=== PATIENT | male | born 1990 | race American Indian/Alaskan Native ===

== ENCOUNTER 2023-09-26 11:14 | Inpatient (IN) | payer SELFPAY ==
[2023-09-26] MEDS ORDERED: NA CHLORIDE 0.9% 2,000 ML ONE (11:53)
[2023-09-26] MEDS ORDERED: ONDANSETRON 4 MG/2 ML VIAL ONE ×2 (12:29→13:46)
[2023-09-26] MEDS ORDERED: HYDROMORPHONE HCL 1 MG/ML INJ ONE ×2 (12:29→13:56)
[2023-09-26 12:32] LABS: Eosinophils % 0.2 % (0-4.4); Nucleated Red Blood Cells % 0.1 % (0-0); Red Cell Distribution Width 14.2 % (12.1-15.2)
[2023-09-26 12:36] LABS: Absolute Lymphocytes (CBC) 2.8 K/uL (0.7-4.9); Absolute Monocytes 1.3 K/uL (0.1-1.3); Absolute Neutrophil 11.5 K/uL (1.8-8.0); Basophils % 0.2 % (0-1.3); Hematocrit 48.1 % (39.6-49.0); Hemoglobin 15.6 g/dL (13.6-17.9); Lymphocytes % 17.8 % (15.3-44.8); MCH 31.6 pg (27.0-35.0); MCHC 32.4 g/dL (32.0-36.0); MCV 97.5 fL (80-100); MPV 10.4 fL (7.6-11.3); Monocytes % 8.3 % (3.3-12.3); Neutrophils % 73.5 % (41.7-73.7); Platelets 298 thou/uL (152-406); RBC Red Blood Cell Count 4.93 M/uL (4.33-5.43)
--- NOTE | 2023-09-26 13:21 | RAD REPORT ---
EXAM DESCRIPTION: Michelle Single View09/26/2023 12:29 pm CLINICAL HISTORY: [place] breath COMPARISON: none FINDINGS: Small nodular opacity right lung base. Left lung appears clear Lungs are moderately hyperaerated IMPRESSION: Hyperaerated lungs Small nodular opacity right base a represent a nipple shadow or pulmonary nodule. Follow-up chest irene m including obliques with a right nipple marker in 3 months recommended for re-evaluation
[2023-09-26 13:30] LABS: Blood Morphology Comment NOT SEEN (NOT SEEN); Platelet Estimate ADEQ; White Blood Cell Scan OK (OK)
[2023-09-26 13:36] LABS: ALT/SGPT 27 U/L (16-61); AST/SGOT 14 U/L (15-37); Albumin 3.4 g/dL (3.4-5.0); Albumin/Globulin Ratio 0.8 (1.1-1.8); Alkaline Phosphatase 216 U/L (45-117); Anion Gap 29.4 mEq/L (5.0-15.0); BUN Blood Urea Nitrogen 18 mg/dL (7-18); Bilirubin Total 0.4 mg/dL (0.2-1.0); Globulin 4.3 g/dL (2.3-3.5); Glomerular Filtration Rate 92 ml/min (=/>90); Glucose Level 546 mg/dL (74-106); Potassium 3.4 mEq/L (3.5-5.1); Protein, Total 7.7 g/dL (6.4-8.2); Sodium Level 133 mEq/L (136-145)
[2023-09-26 13:43] LABS: Bicarbonate < 8 mEq/L (21-32)
[2023-09-26] MEDS ORDERED: NA CHLORIDE 0.9% 100 ML ONE ×2 (13:46→21:00)
[2023-09-26] MEDS ORDERED: INSULIN -REGULAR HUMAN 100 UNIT in NA CHLORIDE 0.9% 100 ML IV SCH ×2 (14:00→14:30)
--- NOTE | 2023-09-26 14:10 | ER ---
Nurse's Notes [facility] Name: Ebenezer Joshi Age: 33 yrs Sex: Male : 1990 Arrival Date: 09/26/2023 Time: 11:14 Bed 2 Private MD: Diagnosis: Diabetic ketoacidosis, lactic acidosis, dehydration, hyperglycemia Presentation: 09/25 11:24 Chief complaint: Patient states: "I've been SOB, N/V, and upper stomach pain since this mb9 morning.". Coronavirus screen: At this time, the client does not indicate any symptoms associated with coronavirus-19. Coronavirus screen: Vaccine status: Patient reports receiving the 2nd dose of the covid vaccine. Ebola Screen: No symptoms or risks identified at this time. Initial Sepsis Screen: Does the patient meet any 2 criteria? HR > 90 bpm. Does the patient have a suspected source of infection? No. Patient's initial sepsis screen is negative. Risk Assessment: Do you want to hurt yourself or someone else? Patient reports no desire to harm self or others. Onset of symptoms was September 26, 2023. 11:24 Method Of Arrival: Ambulatory mb9 11:24 Acuity: RANJEET 2 mb9 Triage Assessment: 11:26 General: Appears uncomfortable, Behavior is anxious. Pain: Complains of pain in mb9 abdomen. EENT: No signs and/or symptoms were reported regarding the EENT system. Cardiovascular: Patient's skin is warm and dry. Respiratory: Reports shortness of breath Airway is patent Respiratory effort is even, unlabored, Respiratory pattern is regular, symmetrical, Breath sounds are clear bilaterally. Respiratory: Onset: The symptoms/episode began/occurred suddenly, the patient has mild shortness of breath. GI: Abd is soft Abdomen is tender to palpation in right upper quadrant and left upper quadrant Reports upper abdominal pain, nausea, vomiting. Musculoskeletal: Range of motion: intact in all extremities. Historical: - Allergies: 11:23 No Known Allergies; mb9 - Home Meds: 11:23 Metformin Oral [Active]; mb9 - PMHx: 11:23 Diabetes mellitus; Hypertensive disorder; mb9 - PSHx: 11:23 None; mb9 - Immunization history:: Adult Immunizations up to date. - Social history:: Smoking status: Patient denies any tobacco usage or history of. Screenin:17 [facility] ED Fall Risk Assessment (Adult) History of falling in the last 3 months, rs5 including since admission No falls in past 3 months (0 pts) Confusion or Disorientation No (0 pts) Intoxicated or Sedated No (0 pts) Impaired Gait No (0 pts) Mobility Assist Device Used No (0 pt) Altered Elimination No (0 pt) Score/Fall Risk Level 0 - 2 = Low Risk Oriented to surroundings, Maintained a safe environment. 11:17 Abuse screen: Denies threats or abuse. Nutritional screening: No deficits noted. rs5 Tuberculosis screening: No symptoms or risk factors identified. Assessment: 11:20 General: Appears distressed, uncomfortable, Behavior is cooperative. Pain: Complains of rs5 pain in abdomen Pain currently is 8 out of 10 on a pain scale. Quality of pain is described as aching, Is continuous. Neuro: Level of Consciousness is awake, alert, obeys commands, Oriented to person, place, time, situation. Cardiovascular: Patient's skin is warm and dry. Rhythm is regular. Respiratory: Airway is patent Respiratory effort is even, unlabored, Respiratory pattern is regular, symmetrical. GI: Abdomen is flat, non-distended, Abd is soft and non tender X 4 quads. Reports nausea, Pain is 8 out of 10 on a pain scale. : No signs and/or symptoms were reported regarding the genitourinary system. EENT: No signs and/or symptoms were reported regarding the EENT system. Derm: Skin is intact, Skin is dry, Skin is normal. Musculoskeletal: Circulation, motion, and sensation intact. Range of motion: intact in all extremities. 12:29 Reassessment: Patient and/or family updated on plan of care and expected duration. Pain rs5 level reassessed. Patient is alert, oriented x 3, equal unlabored respirations, skin warm/dry/pink. Patient states feeling better. Patient states symptoms have improved. 13:37 Reassessment: Patient and/or family updated on plan of care and expected duration. Pain rs5 level reassessed. Patient is alert, oriented x 3, equal unlabored respirations, skin warm/dry/pink. Pain: Complains of pain in abdomen Pain currently is 7 out of 10 on a pain scale. Quality of pain is described as aching, Is continuous. 13:37 Reassessment: Provider notified pt is experiencing pain. rs5 20:17 General: person to contact nephew: Tod Honeycutt [phone]. lg3 Vital Signs: 11:24 BP 181 / 94; Pulse 108; Resp 20; Temp 97.7; Pulse Ox 100% on R/A; Weight 52.16 kg; mb9 Height 5 ft. 10 in. ; Pain 10/10; 13:37 BP 156 / 99; Pulse 90; Resp 19; Pulse Ox 99% on R/A; rs5 13:52 BP 150 / 100; rs5 14:48 BP 141 / 95; Pulse 96; Resp 16; Pulse Ox 100% on R/A; ld1 11:24 Body Mass Index 16.50 (52.16 kg, 177.8 cm) mb9 11:24 Pain Scale: Adult mb9 ED Course: 11:14 Patient arrived in ED. im 11:20 Patient has correct armband on for positive identification. Bed in low position. Call rs5 light in reach. Side rails up X2. 11:20 No provider procedures requiring assistance completed. rs5 11:21 Henry Cervantes MD is Attending Physician. sp3 11:24 Arm band placed on. mb9 11:26 Triage completed. mb9 11:30 Inserted saline lock: 24 gauge in right forearm, using aseptic technique. rs5 11:54 Nick Ceron, RN is Primary Nurse. rs5 12:31 Chest Single View XRAY In Process Unspecified. EDMS 14:09 Garry Marroquin MD is Hospitalizing Provider. sp3 14:19 CT Abd/Pelvis - Without Contrast In Process Unspecified. EDMS 15:11 Notified ED physician of a critical lab result(s). glucose 617. mb9 15:46 Glucose Sent. rs5 16:08 Patient admitted, IV remains in place. ld1 16:09 Provided Education on: need for admit. ld1 19:52 Glucose Sent. lg3 19:52 Glucose Sent. lg3 19:52 Glucose Sent. lg3 19:52 Glucose Sent. lg3 19:52 Glucose Sent. lg3 09/26 00:32 Attending Physician role handed off by Henry Cervantes MD sp4 00:32 Bright Kimball MD is Attending Physician. sp4 01:09 Assisted provider with central line placement. Set up central line tray. Triple lumen lg3 line placed in left internal jugular. Line placed by Bright iKmball MD Placement verified by CXR, blood return, Patient tolerated well. 07:06 Primary Nurse role handed off by Nick Ceron RN eb Administered Medications: 09/25 12:30 Drug: NS 0.9% IV (30 ml/kg) 30 ml/kg IV at bolus once; Sepsis Protocol Route: IV; Rate: rs5 bolus; Site: right forearm; 12:30 Drug: HYDROmorphone IVP 1 mg IVP once Route: IVP; Site: right forearm; rs5 12:30 Drug: Ondansetron IVP 4 mg IVP once; over 2 minutes Route: IVP; Site: right forearm; rs5 13:58 Drug: Ondansetron IVP 4 mg IVP once; over 2 minutes Route: IVP; Site: right antecubital;rs5 13:58 Drug: HYDROmorphone IVP 1 mg IVP once Route: IVP; Site: right antecubital; rs5 14:04 Drug: Ondansetron IVP 4 mg IVP once; over 2 minutes Route: IVP; Site: right forearm; rs5 15:10 Drug: Insulin Drip - (Insulin Regular Human IVP 100 units, NS 0.9% IV 100 ml) IV at ld1 calculated rate continuous; Standard concentration 1unit/ml; Dose for DKA is 0.1 units/kg/hr {Co-Signature: aa5 (Xuan Jones RN).} Route: IV; Rate: calculated rate; Site: right wrist; Medication: 13:39 VIS not applicable for this client. rs5 Outcome: 14:09 Decision to Hospitalize by Provider. sp3 16:08 Admitted to ER Hold. Please see [facility] for further documentation. ld1 16:08 Condition: stable 16:08 Instructed on the need for admit, 09/26 13:09 Patient left the ED. mb9 Signatures: Dispatcher [employer] EDMS Zoie Barakat Lacie, RN RN lg3 Annita Lewis RN RN ld1 Henry Cervantes MD MD sp3 Christa Chavarria RN RN mb9 Nick Ceron RN RN rs5 Bright Kimball MD MD sp4 Gris Momin Audri RN aa5 Corrections: (The following items were deleted from the chart) 09/25 11:37 11:24 Acuity: RANJEET 3 mb9 mb9
--- NOTE | 2023-09-26 14:10 | EDPHYS ---
Physician Documentation [facility] Name: Ebenezer Joshi Age: 33 yrs Sex: Male : 1990 Arrival Date: 09/26/2023 Time: 11:14 Bed 2 Private MD: ED Physician Bright Kimball HPI: 09/25 12:21 This 33 yrs old Male presents to ER via Ambulatory with complaints of Breathing sp3 Difficulty, Vomiting. 12:21 33-year-old male with history of diabetes, hypertension presents to the ED with chief sp3 complaint diarrhea, abdominal cramping and heavy breathing. Symptoms started 3 days ago. He denies any blood or mucus. He feels "dehydrated". Review of systems negative for headache, fever, URI symptoms, chest pain, back pain, vomiting, rash, syncope, near syncope, or any other signs or symptoms on ROS at this time. He states he is not currently on any medications for his diabetes.. Historical: - Allergies: 11:23 No Known Allergies; mb9 - Home Meds: 11:23 Metformin Oral [Active]; mb9 - PMHx: 11:23 Diabetes mellitus; Hypertensive disorder; mb9 - PSHx: 11:23 None; mb9 - Immunization history:: Adult Immunizations up to date. - Social history:: Smoking status: Patient denies any tobacco usage or history of. ROS: 12:22 Constitutional: Negative for fever, chills, and weight loss, Eyes: Negative for injury, sp3 pain, redness, and discharge, ENT: Negative for injury, pain, and discharge, Neck: Negative for injury, pain, and swelling, Cardiovascular: Negative for chest pain, palpitations, and edema, Back: Negative for injury and pain, MS/Extremity: Negative for injury and deformity, Skin: Negative for injury, rash, and discoloration, Neuro: Negative for headache, weakness, numbness, tingling, and seizure, Psych: Negative for depression, anxiety, suicide ideation, homicidal ideation, and hallucinations, Allergy/Immunology: Negative for hives, rash, and allergies, 12:22 All other systems are negative, Exam: 12:23 Constitutional: This is a well developed, well nourished patient who is awake, alert, sp3 and in no acute distress. Head/Face: Normocephalic, atraumatic. Eyes: Pupils equal round and reactive to light, extra-ocular motions intact. Lids and lashes normal. Conjunctiva and sclera are non-icteric and not injected. Cornea within normal limits. Periorbital areas with no swelling, redness, or edema. ENT: Nares patent. No nasal discharge, no septal abnormalities noted. External auditory canals are clear. Oropharynx with no redness, swelling, or masses, exudates, or evidence of obstruction, uvula midline. Mucous membranes moist. Neck: Trachea midline, no thyromegaly or masses palpated, and no cervical lymphadenopathy. Supple, full range of motion without nuchal rigidity, or vertebral point tenderness. No Meningismus. Chest/axilla: Normal chest wall appearance and motion. Nontender with no deformity. No lesions are appreciated. Cardiovascular: Regular rate and rhythm with a normal S1 and S2. No gallops, murmurs, or rubs. Normal PMI, no JVD. No pulse deficits. Back: No spinal tenderness. No costovertebral tenderness. Full range of motion. Skin: Warm, dry with normal turgor. Normal color with no rashes, no lesions, and no evidence of cellulitis. 12:23 Abdomen/GI: Patient with Kussmaul breathing and abdominal cramping. Clinically he is dehydrated with dry mucous membranes., 13:22 ECG was reviewed by the Attending Physician. EKG demonstrates sinus tachycardia at 100 sp3 bpm with normal axis, normal intervals, normal QRS nonspecific ST's ST changes due to motion artifact without any evidence of acute ischemia. Vital Signs: 11:24 BP 181 / 94; Pulse 108; Resp 20; Temp 97.7; Pulse Ox 100% on R/A; Weight 52.16 kg; mb9 Height 5 ft. 10 in. ; Pain 10/10; 13:37 BP 156 / 99; Pulse 90; Resp 19; Pulse Ox 99% on R/A; rs5 13:52 BP 150 / 100; rs5 14:48 BP 141 / 95; Pulse 96; Resp 16; Pulse Ox 100% on R/A; ld1 11:24 Body Mass Index 16.50 (52.16 kg, 177.8 cm) mb9 11:24 Pain Scale: Adult mb9 Procedures: 09/26 01:13 Central Line: the site was prepped with in sterile fashion, Chlorhexidine, a triple sp4 lumen catheter was inserted, in the left internal jugular vein, in 1 attempts. placement was verified, by CXR, by blood return, Ultrasound-guided central line, the site was dressed with 4X4s, Tegaderm, using sterile technique, Sutured with silk sutures, the patient tolerated the procedure, well, Patient has pulled out multiple IVs and decision was made to secure IV access over the central line. Left internal jugular central venous line was placed with ultrasound guidance for better IV access in the resuscitation for this patient who is in DKA. Procedure Is considered emergent. MDM: 09/25 11:21 Patient medically screened. sp3 12:23 Data reviewed: vital signs, nurses notes, lab test result(s), radiologic studies. ED sp3 course: 33-year-old male with diabetes and hypertension now with abdominal cramping and Kussmaul breathing with probable DKA. Other considerations include hyperglycemia with mild dehydration versus other GI pathology including gastroenteritis. Workup will include laboratory values and fluid resuscitation and any antibiotics as indicated. Pain and nausea control as well. Disposition probable admission with any other interventions as indicated.. 14:08 ED course: Patient will be admitted for DKA with significant anion gap noted. Lactate sp3 is also 2.9. I did CT scan of the abdomen pelvis due to continued abdominal pain. Vital signs remain normal. Further per inpatient team patient will be admitted to the ICU.. 09/25 11:46 Order name: Blood Culture Adult (2) sp3 09/25 11:46 Order name: CBC with Diff; Complete Time: 13:35 sp3 09/25 11:46 Order name: CMP; Complete Time: 13:59 sp3 09/25 11:46 Order name: Lactate w/ 2H reflex if indic.; Complete Time: 13:59 sp3 09/25 11:46 Order name: Urinalysis w/ reflexes; Complete Time: 00:32 sp3 09/25 11:46 Order name: ABG: VBG; Complete Time: 00:32 sp3 09/25 11:46 Order name: UDS; Complete Time: 00:32 sp3 09/25 11:48 Order name: Glucose, Ancillary Testing; Complete Time: 13:19 EDMS 09/25 12:47 Order name: CBC Smear Scan; Complete Time: 13:35 EDMS 09/25 14:18 Order name: Glucose; Complete Time: 00:32 ld1 09/25 14:24 Order name: Basic Metabolic Panel EDMS 09/25 14:24 Order name: Basic Metabolic Panel EDMS 09/25 14:24 Order name: Basic Metabolic Panel; Complete Time: 00:32 EDMS 09/25 14:24 Order name: Basic Metabolic Panel; Complete Time: 00:32 EDMS 09/25 14:24 Order name: CBC with Automated Diff EDMS 09/25 14:24 Order name: CBC with Automated Diff EDMS 09/25 14:24 Order name: CBC with Automated Diff EDMS 09/25 14:24 Order name: CBC with Automated Diff EDMS 09/25 14:24 Order name: Magnesium EDMS 09/25 14:24 Order name: Magnesium EDMS 09/25 14:24 Order name: Magnesium EDMS 09/25 14:24 Order name: Magnesium EDMS 09/25 14:24 Order name: Phosphorus EDMS 09/25 14:24 Order name: Phosphorus EDMS 09/25 14:24 Order name: Phosphorus EDMS 09/25 14:24 Order name: Phosphorus EDMS 09/25 14:31 Order name: Glucose, Ancillary Testing; Complete Time: 14:47 EDMS 09/25 15:35 Order name: Glucose ld1 09/25 16:13 Order name: Glucose Level; Complete Time: 00:32 EDMS 09/25 16:14 Order name: Glucose ld1 09/25 17:16 Order name: Glucose Level; Complete Time: 00:32 EDMS 09/25 17:50 Order name: Glucose rs5 09/25 17:55 Order name: Glucose ld1 09/25 18:37 Order name: Glucose Level; Complete Time: 00:32 EDMS 09/25 18:48 Order name: Lactate Sepsis 2 HR Follow-up; Complete Time: 00:32 EDMS 09/25 18:49 Order name: Glucose rs5 09/25 19:17 Order name: Glucose lg3 09/25 19:31 Order name: Glucose Level; Complete Time: 00:32 EDMS 09/25 20:44 Order name: Glucose, Ancillary Testing; Complete Time: 00:32 EDMS 09/25 21:58 Order name: Glucose, Ancillary Testing; Complete Time: 00:32 EDMS 09/25 22:48 Order name: Glucose, Ancillary Testing; Complete Time: 00:32 EDMS 09/25 23:51 Order name: Glucose, Ancillary Testing; Complete Time: 00:32 EDMS 09/26 00:52 Order name: Glucose, Ancillary Testing EDMS 09/26 01:47 Order name: Glucose, Ancillary Testing EDMS 09/26 02:13 Order name: Glucose, Ancillary Testing EDMS 09/26 02:46 Order name: Glucose, Ancillary Testing EDMS 09/26 03:31 Order name: Gram Stain--Anaerobic Bottle EDMS 09/26 03:45 Order name: Glucose, Ancillary Testing EDMS 09/26 04:36 Order name: Glucose, Ancillary Testing EDMS 09/26 04:47 Order name: Basic Metabolic Panel [facility] 09/26 05:26 Order name: Glucose, Ancillary Testing EDMS 09/26 06:15 Order name: Basic Metabolic Panel EDMS 09/26 06:15 Order name: Phosphorus EDMS 09/26 06:15 Order name: Magnesium EDMS 09/26 06:44 Order name: Blood Culture EDMS 09/26 06:48 Order name: Glucose, Ancillary Testing EDMS 09/26 07:42 Order name: Glucose, Ancillary Testing EDMS 09/26 08:42 Order name: Glucose, Ancillary Testing EDMS 09/26 09:53 Order name: Glucose, Ancillary Testing EDMS 09/26 10:45 Order name: Glucose, Ancillary Testing EDMS 09/26 11:43 Order name: Glucose, Ancillary Testing EDMS 09/26 12:39 Order name: Basic Metabolic Panel EDMS 09/26 12:39 Order name: Magnesium EDMS 09/25 11:46 Order name: Chest Single View XRAY; Complete Time: 13:23 sp3 09/25 13:56 Order name: CT Abd/Pelvis - Without Contrast; Complete Time: 14:47 sp3 09/26 01:15 Order name: Chest Single View XRAY sp4 09/26 10:26 Order name: RAD EDMS 09/25 11:46 Order name: EKG; Complete Time: 11:47 sp3 09/25 11:46 Order name: Accucheck; Complete Time: 13:52 sp3 09/25 11:46 Order name: Cardiac monitoring; Complete Time: 12:36 sp3 09/25 11:46 Order name: EKG - Nurse/Tech; Complete Time: 13:24 sp3 09/25 11:46 Order name: IV Saline Lock - Large Bore; Complete Time: 12:36 sp3 09/25 11:46 Order name: Labs collected and sent; Complete Time: 12:36 sp3 09/25 11:46 Order name: O2 Sat Monitoring; Complete Time: 12:36 sp3 09/25 11:46 Order name: Vital Signs; Complete Time: 12:36 sp3 09/25 12:39 Order name: Labs - recollect needed: green and nolen top; Complete Time: 13:52 ds4 09/26 00:33 Order name: Central Line Kit; Complete Time: 01:08 sp4 Administered Medications: 12:30 Drug: NS 0.9% IV (30 ml/kg) 30 ml/kg IV at bolus once; Sepsis Protocol Route: IV; Rate: rs5 bolus; Site: right forearm; 12:30 Drug: HYDROmorphone IVP 1 mg IVP once Route: IVP; Site: right forearm; rs5 12:30 Drug: Ondansetron IVP 4 mg IVP once; over 2 minutes Route: IVP; Site: right forearm; rs5 13:58 Drug: Ondansetron IVP 4 mg IVP once; over 2 minutes Route: IVP; Site: right antecubital;rs5 13:58 Drug: HYDROmorphone IVP 1 mg IVP once Route: IVP; Site: right antecubital; rs5 14:04 Drug: Ondansetron IVP 4 mg IVP once; over 2 minutes Route: IVP; Site: right forearm; rs5 15:10 Drug: Insulin Drip - (Insulin Regular Human IVP 100 units, NS 0.9% IV 100 ml) IV at ld1 calculated rate continuous; Standard concentration 1unit/ml; Dose for DKA is 0.1 units/kg/hr {Co-Signature: aa5 (Xuan Jones RN).} Route: IV; Rate: calculated rate; Site: right wrist; Disposition Summary: 09/26/23 14:09 Hospitalization Ordered Notes: Hospitalization Status: Inpatient Admission sp3 Provider: Garry Marroquin Condition: Stable sp3 Problem: an acute exacerbation sp3 Symptoms: have worsened sp3 Bed/Room Type: Standard 3 Location: Telemetry/MedSurg (Inpatient)(09/27/23 12:20) eb Room Assignment: 210(09/27/23 12:20) eb Diagnosis - Diabetic ketoacidosis, lactic acidosis, dehydration, hyperglycemia sp3 Forms: - Medication Reconciliation Form sp3 - SBAR form sp3 - Leadership Thank You Letter sp3 Signatures: Dispatcher [employer] EDMS Boni Mark Anthony ds4 Zoie Barakat Lauren RN RN ld1 Henry Cervantes MD MD sp3 Ree Rocha RN RN kb3 Christa Chavarria RN RN mb9 Nick Ceron RN RN rs5 Bright Kimball MD MD sp4 Xuan Jones RN aa5 Corrections: (The following items were deleted from the chart) 15:18 14:09 Intensive Care Unit sp3 kb3 15:18 14:09 sp3 kb3 09/26 12:20 09/25 15:18 [facility] ER HOLD kb3 eb 09/26 12:20 09/25 15:18 ERHOLD- kb3 eb
--- NOTE | 2023-09-26 14:17 | P.HP ---
Certification for Inpatient Patient admitted to: Inpatient With expected LOS: <2 Midnights <SiminYamilka - Last Filed: 09/26/23 14:23> Patient History Date of Service: 09/26/23 Reason for admission: DKA History of Present Illness: 33-year-old male with a past medical history of [id number]-[id number] diabetes, presents to the emergency room with nausea vomiting. He reports associated unable to tolerate p.o. intake, abdominal cramping, diarrhea. He reports symptoms started 3 days ago, is getting progressively worse. He reports feeling dehydrated. He denies chest pain, shortness of breath, vomiting, syncope, plan to admit for DKA, dehydration nausea vomiting, to ICU. VS 181 / 94; Pulse 108; Resp 20; Temp 97.7; Pulse Ox 100% on R/A; Weight 52.16 kg; Height 5 ft. 10 in. ; Pain 10/10; treated with Dilaudid, 1 mg, Zofran, in the emergency room for pain and vomiting. Chest x-ray IMPRESSION: Hyperaerated lungs Small nodular opacity right base a represent a nipple shadow or pulmonary nodule. Follow-up chest film including obliques with a right nipple marker in 3 months recommended for re- evaluation. CT of the abdomen pelvis pending report <Yamilka Duval - Last Filed: 09/26/23 14:23> Date of Service: 09/26/23 <Garry Marroquin - Last Filed: 09/26/23 15:54> Allergies No Known Allergies Allergy (Unverified 09/26/23 13:57) Review of Systems per HPI <Yamilka Duval - Last Filed: 09/26/23 14:23> Physical Examination - Physical Exam General: Alert, In no apparent distress, Oriented x3 HEENT: Atraumatic, Normocephalic Neck: Supple, 2+ carotid pulse no bruit Respiratory: Clear to auscultation bilaterally, Normal air movement Cardiovascular: No edema, Normal pulses Capillary refill: <2 Seconds Gastrointestinal: Normal bowel sounds, Other (Nausea vomiting diarrhea) Musculoskeletal: No clubbing, No swelling Integumentary: No rashes, No breakdown Neurological: Normal speech, Normal strength at 5/5 x4 extr - Studies Laboratory Data (last 24 hrs) 09/26/23 09/26/23 13:10 12:23 WBC 15.70 H Hgb 15.6 Hct 48.1 Plt Count 298 Sodium 133 L Potassium 3.4 L BUN 18 Creatinine 1.08 Glucose 546 H* Total Bilirubin 0.4 AST 14 L ALT 27 Alkaline Phosphatase 216 H <Yamilka Duval - Last Filed: 09/26/23 14:23> - Studies Laboratory Data (last 24 hrs) 09/26/23 09/26/23 13:10 12:23 WBC 15.70 H Hgb 15.6 Hct 48.1 Plt Count 298 Sodium 133 L Potassium 3.4 L BUN 18 Creatinine 1.08 Glucose 546 H* Total Bilirubin 0.4 AST 14 L ALT 27 Alkaline Phosphatase 216 H <LopezIndukarey Griffith - Last Filed: 09/26/23 15:54> Assessment and Plan - Plan Assessment plan Admit to ICU on DKA IV fluids, insulin drip, every hour blood sugars, Insulin drip per DKA protocol Every 4 hours BMP and mag Blood glucose greater than 500 Lactic acidosis IV fluids, IV Levaquin, Cultures, Trend lactic Lactic 2.9, repeat repeat lactic Urine, blood culture Dehydration, Abdominal pain, Nausea vomiting diarrhea As needed analgesics, antiemetics, IV fluids Trend lactic, Hypokalemia Trend electrolytes replace as needed every 4 hours BMP Full code DVT Lovenox Diet n.p.o. Disposition Home Discharge Plan: Home - Advance Directives Does patient have a Living Will: No Does patient have a Durable POA for Healthcare: No - Code Status/Comfort Care Code Status: Full Code Critical Care: Yes Time Spent Managing Pts Care (In Minutes): 65 <Yamilka Duval - Last Filed: 09/26/23 14:23> - Plan Pt seen and examined. I agree with the note by the [employer] FORMER. Pt is a 33yo male with past medical history of DM who presents with nausea and vomiting. 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 This history is from chart review. Pt told the ER physician that he started having nausea, vomiting, poor oral intake, diarrhea and abd pain 3 days ago. It progressively worsened and pt came to the ER for evaluation. On admission, lab studies show wbc 15.7, glucose 671 and hgb 15.6. CXR shows hyperaerated lungs Small nodular opacity right base a represent a nipple shadow or pulmonary nodule. At bedside, pt is in mild distress A/P: DKA: Will continue DKA protocol. glucose is 671. Pt is having kussmaul breathing. Lactic acidosis: Lactate is 2.9. Will continue IVF and trend lactate. Leukocytosis: WBC is 15.7. Due to DKA. Will monitor. Code: full <Garry Marroquin - Last Filed: 09/26/23 15:54>
[2023-09-26] MEDS ORDERED: ONDANSETRON 4 MG/2 ML VIAL IV PRN (14:19)
--- NOTE | 2023-09-26 14:42 | RAD REPORT ---
EXAM DESCRIPTION: CT - Abdomen Pelvis Wo Contrast - 09/26/2023 2:17 pm CLINICAL HISTORY: Abdominal pain COMPARISON: None TECHNIQUE: Computed axial tomography of the abdomen and pelvis was obtained. IV and oral contrast we re not requested. All CT scans are performed using dose optimization technique as appropriate and may include automated exposure control or mA/KV adjustment according to patient size. FINDINGS: A few images are degraded by motion artifact The The evaluation of solid organs, vessels and bowel is limited secondary to the lack of contrast a dministration. The stomach is moderately to markedly distended The liver, spleen, pancreas, adrenals and kidneys appear grossly normal. There is no evidence of diverticulitis. IMPRESSION: Moderate to marked gastric distention
[2023-09-26] MEDS ORDERED: LORazepam 2 MG/ML VIAL ONE ×2 (14:56→21:33)
[2023-09-26] MEDS: KCL 20 MEQ/100 mL IVPB 20 MEQ/100 ML BAG IV SCH (15:00)
[2023-09-26] MEDS: NA CHLORIDE 0.9% 1,000 ML IV SCH (15:00)
[2023-09-26] MEDS: LORazepam 2 MG/ML VIAL IV PRN (15:00)
[2023-09-26] MEDS: Levofloxacin 750mg IV 750 MG/150 ML BAG IV SCH (15:00)
[2023-09-26] MEDS: D5 0.45 NS 1,000 ML IV SCH (15:00)
[2023-09-26] MEDS ORDERED: NA CHLORIDE 0.9% 1,000 ML ONE ×2 (15:33→17:54)
[2023-09-26] MEDS ORDERED: KCL 20 MEQ/100 mL IVPB 100 ML IV ONE ×2 (15:33→17:56)
[2023-09-26] MEDS ORDERED: Levofloxacin 750mg IV 750 MG/150 ML BAG IV ONE (15:33)
[2023-09-26] MEDS ORDERED: D5 0.45 NS 1,000 ML IV ONE (15:36)
[2023-09-26] MEDS: INSULIN -REGULAR HUMAN 100 UNIT in NA CHLORIDE 0.9% 100 ML IV SCH (15:39)
[2023-09-26] MEDS ORDERED: INSULIN REGULAR (HUMAN) 100 UNIT/ML ONE ×3 (17:56→20:59)
[2023-09-26 18:49] LABS: Anion Gap 28.7 mEq/L (5.0-15.0); BUN Blood Urea Nitrogen 22 mg/dL (7-18); Glomerular Filtration Rate 90 ml/min (=/>90); Potassium 3.7 mEq/L (3.5-5.1); Sodium Level 134 mEq/L (136-145)
[2023-09-26 18:50] LABS: Glucose Level 608 mg/dL (74-106)
[2023-09-26 18:51] LABS: Bicarbonate < 8 mEq/L (21-32)
[2023-09-26 21:30] LABS: Arterial Blood Carboxyhemoglob 0.8 % (0-1.5); Blood Gas Oxyhemoglobin 94.8 % (94-97); Blood Gas THB 13.7 g/dl (12-18); Blood O2 Saturation 97.9 % (92-98.5)
[2023-09-26 22:51] LABS: Specific Gravity 1.017 (1.005-1.030); Sqamous Epithelial <5 /HPF (None Seen); Urine Bacteria <20 /HPF (<20); Urine Bilirubin NEGATIVE (Negative); Urine Blood 1+ (Negative); Urine Clarity Turbid (Clear); Urine Color Light-Yellow (Yellow); Urine Crystals Unidentified Few /HPF (None Seen); Urine Culture Reflex Order NOT NEEDED; Urine Glucose 4+ (Over) (Negative); Urine Ketones 3+ (Negative); Urine Microscopic Reflex YN ORDER UMIC; Urine Mucus Slight /HPF (None Seen); Urine Nitrite NEGATIVE (Negative); Urine Protein 1+ (Negative); Urine RBC <5 /HPF (None Seen); Urine Urobilinogen Normal (Normal); Urine WBC <5 /HPF (<5); Urine Yeast (Budding) Few /HPF (None Seen)
[2023-09-26 22:53] LABS: Anion Gap 22.5 mEq/L (5.0-15.0); BUN Blood Urea Nitrogen 25 mg/dL (7-18); Bicarbonate < 8 mEq/L (21-32); Glomerular Filtration Rate 84 ml/min (=/>90); Glucose Level 271 mg/dL (74-106); Potassium 3.5 mEq/L (3.5-5.1); Sodium Level 139 mEq/L (136-145)
[2023-09-26 22:56] LABS: Barbiturates NEGATIVE (NEGATIVE); Benzodiazepines NEGATIVE (NEGATIVE); Cocaine POSITIVE (NEGATIVE); METHAMPHETAM NEGATIVE (NEGATIVE); Methadone NEGATIVE (NEGATIVE); Opiates NEGATIVE (NEGATIVE); Phencyclidine NEGATIVE (NEGATIVE); THC Cannibis NEGATIVE (NEGATIVE)
[2023-09-27] MEDS ORDERED: D5 0.45 NS 1,000 ML IV ONE ×2 (00:46→07:37)
[2023-09-27] MEDS ORDERED: LIDOCAINE 1% 20 ML MDV ONE (00:59)
[2023-09-27 05:56] LABS: Absolute Lymphocytes (CBC) 0.3 K/uL (0.7-4.9); Absolute Neutrophil 8.9 K/uL (1.8-8.0); Basophils % 0.3 % (0-1.3); Eosinophils % 0.1 % (0-4.4); Hematocrit 34.4 % (39.6-49.0); Hemoglobin 12.1 g/dL (13.6-17.9); Lymphocytes % 3.1 % (15.3-44.8); MCH 31.7 pg (27.0-35.0); MCHC 35.1 g/dL (32.0-36.0); MCV 90.3 fL (80-100); MPV 9.1 fL (7.6-11.3); Neutrophils % 86.5 % (41.7-73.7); Platelets 205 thou/uL (152-406); RBC Red Blood Cell Count 3.81 M/uL (4.33-5.43); Red Cell Distribution Width 13.4 % (12.1-15.2)
[2023-09-27 06:14] LABS: Anion Gap 12.3 mEq/L (5.0-15.0); Magnesium 1.4 mg/dL (1.6-2.4); Potassium 3.3 mEq/L (3.5-5.1)
[2023-09-27 06:15] LABS: Phosphorus 0.7 mg/dL (2.5-4.9)
[2023-09-27] MEDS ORDERED: KCL 20 MEQ/100 mL IVPB 100 ML IV ONE (06:51)
[2023-09-27] MEDS ORDERED: Magnesium Sulfate 2gm IVPB 2 G/50 ML BAG IV ONE (06:51)
[2023-09-27] MEDS ORDERED: NA CHLORIDE 0.9% 100 ML ONE (06:51)
[2023-09-27] MEDS: POTASSIUM PHOS 30 MM in NA CHLORIDE 0.9% 500 ML IV ONE ×2 (07:00→08:00)
[2023-09-27] MEDS: Magnesium Sulfate 2gm IVPB 2 G/50 ML BAG IV ONE (07:07)
[2023-09-27] MEDS: KCL 20 MEQ/100 mL IVPB 20 MEQ/100 ML BAG IV SCH ×2 (07:08→22:12)
[2023-09-27] MEDS: INSULIN REGULAR (HUMAN) 100 UNIT/ML ONE (07:09)
--- NOTE | 2023-09-27 07:11 | P.PN ---
Subjective Date of Service: 09/27/23 Chief Complaint: DKA Admitted to ICU on insulin drip, Mild anxiety, Ativan as needed give, blood sugars improved UDS positive for cocaine, alert and oriented this morning answering questions appropriately - Physical Exam General: Alert, In no apparent distress, Oriented x3 HEENT: Atraumatic, Normocephalic Neck: Supple, 2+ carotid pulse no bruit Respiratory: Clear to auscultation bilaterally, Normal air movement Cardiovascular: No edema, Normal pulses Capillary refill: <2 Seconds Gastrointestinal: Normal bowel sounds, nontender Musculoskeletal: No clubbing, No swelling Integumentary: No rashes, No breakdown Neurological: Normal speech, Normal strength at 5/5 x4 extr <Yamilka Duval - Last Filed: 09/27/23 13:26> Date of Service: 09/27/23 <Garry Marroquin - Last Filed: 09/27/23 13:47> Review of Systems Per HPI <Yamilka Duval - Last Filed: 09/27/23 13:26> Physical Examination - Vital Signs Temperature: 97.2 F Blood Pressure: 122/88 Pulse: 96 Respirations: 15 Pulse Ox (%): 100 - Studies Laboratory Data (last 24 hrs) 09/26/23 09/26/23 13:10 12:23 WBC 15.70 H Hgb 15.6 Hct 48.1 Plt Count 298 Sodium 133 L Potassium 3.4 L BUN 18 Creatinine 1.08 Glucose 546 H* Total Bilirubin 0.4 AST 14 L ALT 27 Alkaline Phosphatase 216 H <Yamilka Duval - Last Filed: 09/27/23 13:26> Assessment And Plan - Plan Assessment plan Admit to ICU on DKA IV fluids, insulin drip, every hour blood sugars, Insulin drip per DKA protocol Every 4 hours BMP and mag Blood glucose greater than 500 09/26 transition to the floor, DC insulin drip sliding scale Accu-Chek high Accu- Cheks ACHS Start long-acting insulin 0900 today Bacteremia Infectious disease consult Positive blood cultures IV vancomycin, Levaquin 09/26 Repeat blood cultures in a.m. Lactic acidosis IV fluids, Cultures, Trend lactic Lactic 2.9, repeat repeat lactic Urine, blood culture Dehydration, Abdominal pain, Nausea vomiting diarrhea As needed analgesics, antiemetics, IV fluids Trend lactic, Acute kidney injury unknown baseline BUN 25/1.6-> BUN 33 1.47-BUN 37 1.65 Nephrology consult Hypokalemia Trend electrolytes replace as needed every 4 hours BMP Opioid abuse disorder UDS positive for cocaine educate on substance abuse disorder Full code DVT Lovenox Diet dm diet Disposition Home Discharge Plan: Home - Code Status/Comfort Care Code Status: Full Code Critical Care: Yes Time Spent Managing PTS Care (In Minutes): 55 <Yamilka Duval - Last Filed: 09/27/23 13:26> - Plan Pt seen and examined. I agree with the note by the WHEAT CLEANER. Blood sugar has improved. AG has closed. Off insulin drip. Continue accuchek, SSI m lantus 20u daily and ADA diet. Will f/u A1c. Pt was advised to quit cocaine abuse. Will avoid BB. Continue IVF and trend lactate. Monitor potassium and renal function. <Garry Marroquin - Last Filed: 09/27/23 13:47>
[2023-09-27] MEDS ORDERED: INSULIN GLARGINE 100 UNIT/ML SQ ONE (08:22)
[2023-09-27] MEDS: ENOXAPARIN 40 MG/0.4 ML SQ SCH (09:00)
[2023-09-27] MEDS: INSULIN GLARGINE 100 UNIT/ML SQ SCH (09:00)
[2023-09-27] MEDS ORDERED: GLUCAGON 1 MG/VIAL IM PRN (10:03)
[2023-09-27] MEDS ORDERED: D50W 25 GM/50 ML SYRINGE IV PRN (10:03)
[2023-09-27] MEDS: CEFEPIME 2 GM in NA CHLORIDE 0.9% 100 ML IV SCH (10:03)
--- NOTE | 2023-09-27 10:26 | RAD REPORT ---
EXAM DESCRIPTION: RAD - Chest Single View - 09/27/2023 3:05 am CLINICAL HISTORY: The patient is 33 years old and is Male; Central line left IJ placed TECHNIQUE: Single view of the chest. COMPARISON: No relevant prior studies available. FINDINGS: Lungs: Clear lungs. Pleural space: Unremarkable. No pneumothorax. Heart: Unremarkable. No cardiomegaly. Mediastinum: Unremarkable. Bones/joints: No acute fracture visualized. Tubes, lines and devices: Left IJ central line terminates at the SVC/RA junction. Upper abdomen: No free air in the visualized upper abdomen. IMPRESSION: Left IJ central line terminates at the SVC/RA junction. No pneumothorax. Electronically signed by: Theresa Nieves MD 09/27/2023 05:42 AM CDT Due to temporary technical issues with the PACS/Fluency reporting system, reports are being signed by the in house radiologist without review as a courtesy to ensure prompt reporting. The interpreting r adiologist is fully responsible for the content of the report.
[2023-09-27] MEDS ORDERED: VANCOMYCIN 1 GM/VIAL ONE (10:46)
[2023-09-27] MEDS ORDERED: NA CHLORIDE 0.9% 250 ML ONE (10:46)
[2023-09-27] MEDS: VANCOMYCIN 1 GM in NA CHLORIDE 0.9% 250 ML IVPB SCH (10:51)
[2023-09-27] MEDS: INSULIN REGULAR (HUMAN) 100 UNIT/ML SQ SCH ×2 (11:30→16:30)
[2023-09-27] MEDS ORDERED: INSULIN REGULAR (HUMAN) 100 UNIT/ML ONE (11:34)
[2023-09-27 12:37] LABS: Anion Gap 12.9 mEq/L (5.0-15.0); Potassium 3.9 mEq/L (3.5-5.1)
--- NOTE | 2023-09-27 17:41 | P.CNS ---
Date of Consult: 09/27/23 Reason for Consult: CHANCE, metab acidosis Chief Complaint: DKA History of Present Illness: Pt is a 33-year-old male who is lethargic and a poor historian but per the records has a past medical history of [id number] diabetes on Metformin, essential HTN possibly on Lisinopril or Losartan, who presented to the emergency room with nausea vomiting. He reports associated unable to tolerate p.o. intake. He reports symptoms started a few days before admission. He was found to have DKA, severe acidosis and other on admission. Allergies No Known Allergies Allergy (Unverified 09/26/23 13:57) - Past Medical/Surgical History Diabetic: Yes -: As per above Past Surgical History: Reviewed- Non-Contributory Review of Systems Limited Physical Examination Temp Pulse Resp BP Pulse Ox 98.6 F 86 15 142/90 H 100 09/27/23 16:00 09/27/23 16:00 09/27/23 16:00 09/27/23 16:00 09/27/23 13:34 General: Other (Lethargic) HEENT: Atraumatic, Normocephalic Neck: Supple Respiratory: Normal air movement Cardiovascular: Regular rate/rhythm Gastrointestinal: Soft and benign, Non-distended, No tenderness, No guarding Musculoskeletal: No swelling, No tenderness Integumentary: No erythema Neurological: Other (Lethargic but awake, responds slowly, able to converse) Conclusions/Impression: A/P) 1. Stage 1 CHANCE in the setting of volume depletion, DKA, possible recent use of SRI/ARB which may all have led to some intrinsic injury. Cont to monitor closely on IVF hydration 2. Monitor UOP closely 3. Automated UA on admission did not reveal pyuria or casts 4. AG metab acidosis with NG hyperchloremic acidosis component. AG persists, LA elevated on admission had normalized. Switch IVF to bicarb added, bicarb deficit > 250 meq/L. Check serum ketones on labs this evening. Trend gap and deficit closely 5. Hypokalemia, hypomagnesemia, hypophosphatemia 2nd to GI losses, reduced intake and intra cellular shifting, recheck levels this evening Valdemar Kenny MD, LORNA
[2023-09-27] MEDS: NACHLORIDE 0.45% 1,000 ML with NA BICARB 8.4% 75 MEQ IV SCH (18:13)
[2023-09-27 21:49] LABS: Anion Gap 11.3 mEq/L (5.0-15.0); BETA HYDROXYBUTYRATE 0.19 mmol/L (0.02-0.27); Phosphorus 2.2 mg/dL (2.5-4.9); Potassium 3.3 mEq/L (3.5-5.1)
[2023-09-27] MEDS: POTASS/SODIUM PHOSPHATE 1 PKT POWD.PACK PO SCH (22:12)
[2023-09-27] MEDS: ACETAMINOPHEN 325 MG TABLET PO PRN (23:29)
[2023-09-28 04:46] LABS: Absolute Eosinophils 0.1 K/uL (0-0.5); Absolute Lymphocytes (CBC) 0.8 K/uL (0.7-4.9); Absolute Monocytes 0.8 K/uL (0.1-1.3); Absolute Neutrophil 6.4 K/uL (1.8-8.0); Basophils % 0.3 % (0-1.3); Eosinophils % 0.7 % (0-4.4); Hematocrit 28.6 % (39.6-49.0); Hemoglobin 10.3 g/dL (13.6-17.9); Lymphocytes % 10.2 % (15.3-44.8); MCH 32.1 pg (27.0-35.0); MCV 89.1 fL (80-100); MPV 8.8 fL (7.6-11.3); Monocytes % 9.6 % (3.3-12.3); Neutrophils % 79.2 % (41.7-73.7); Nucleated Red Blood Cells % 0.1 % (0-0); Platelets 150 thou/uL (152-406); RBC Red Blood Cell Count 3.21 M/uL (4.33-5.43); Red Cell Distribution Width 13.6 % (12.1-15.2)
[2023-09-28 05:03] LABS: Anion Gap 11.2 mEq/L (5.0-15.0); Magnesium 1.9 mg/dL (1.6-2.4); Phosphorus 3.5 mg/dL (2.5-4.9); Potassium 3.2 mEq/L (3.5-5.1)
[2023-09-28] MEDS: POTASSIUM 25 MEQ EFFERV TAB PO ONE (05:36)
--- NOTE | 2023-09-28 06:52 | P.PN ---
Subjective Date of Service: 09/28/23 Chief Complaint: DKA Transition to the floor on blood sugars ACHS, Acute kidney injury, nephrology consult for worsening kidney UDS positive for cocaine, alert and oriented this morning answering questions appropriately - Physical Exam General: Alert, In no apparent distress, Oriented x3 HEENT: Atraumatic, Normocephalic Neck: Supple, 2+ carotid pulse no bruit Respiratory: Clear to auscultation bilaterally, Normal air movement Cardiovascular: No edema, Normal pulses Capillary refill: <2 Seconds Gastrointestinal: Normal bowel sounds, nontender Musculoskeletal: No clubbing, No swelling Integumentary: No rashes, No breakdown Neurological: Normal speech, Normal strength at 5/5 x4 extr <Yamilka Duval - Last Filed: 09/28/23 13:12> Date of Service: 09/28/23 <Garry Marroquin - Last Filed: 09/28/23 17:29> Review of Systems per HPI <Yamilka Duval - Last Filed: 09/28/23 13:12> Physical Examination - Vital Signs Temperature: 98.8 F Blood Pressure: 129/89 Pulse: 75 Respirations: 16 Pulse Ox (%): 99 <Yamilka Duval - Last Filed: 09/28/23 13:12> - Studies Microbiology Data (last 24 hrs): 09/26/23 14:10 Blood - Blood Gram Stain - Final <Garry Marroquin - Last Filed: 09/28/23 17:29> Assessment And Plan - Plan Assessment plan Admit to ICU on DKA improved IV fluids, insulin drip, every hour blood sugars, Insulin drip per DKA protocol Every 4 hours BMP and mag in ICU on insulin Gtt Blood glucose greater than 500 09/25 long acting insulin added 20UQD, BG >300 still elevated will increase 25UQD 09/26 transition to the floor, DC insulin drip sliding scale Accu-Chek high Accu- Cheks ACHS Start long-acting insulin 0900 today Bacteremia Infectious disease consult 09/25 Positive blood cultures x1 G+v(1 of 3) 09/27 Repeat blood cultures in a.m IV vancomycin, Levaquin. HX cocaine use (ukn IVD) Lactic acidosis improving IV fluids, Cultures, Trend lactic Lactic 2.9, repeat repeat lactic Urine, blood culture Dehydration, Abdominal pain, Nausea vomiting diarrhea As needed analgesics, antiemetics, IV fluids Trend lactic, Acute kidney injury unknown baseline BUN 25/1.6-> BUN 33 1.47-BUN 37 1.65->Bun 43/2.77 09/26 Nephrology consult worsening Hypokalemia improved Trend electrolytes replace as needed every 4 hours BMP Opioid abuse disorder UDS positive for cocaine educate on substance abuse disorder Microcytic anemia HH 12.1/34.4-> 10.3/28.6 trend HH Full code DVT Lovenox Diet dm diet Disposition Home Discharge Plan: Home - Code Status/Comfort Care Code Status: Full Code Critical Care: Yes Time Spent Managing PTS Care (In Minutes): 35 <Yamilka Duval - Last Filed: 09/28/23 13:12> - Plan Pt seen and examined. I agree with the note by the AIR PURIFIER SERVICER. BG has improved. Pt was advised to quit drug abuse. Will dc soon. <Garry Marroquin - Last Filed: 09/28/23 17:29>
[2023-09-28] MEDS: INSULIN GLARGINE 100 UNIT/ML SQ SCH (07:58)
[2023-09-28] MEDS: POTASSIUM CL SA 10 MEQ TAB PO SCH (09:28)
--- NOTE | 2023-09-28 10:50 | P.PN ---
Date of Service: 09/28/23 Vital Signs Temp Pulse Resp BP Pulse Ox 98.8 F 75 16 129/89 99 09/28/23 06:54 09/28/23 06:54 09/28/23 06:54 09/28/23 06:54 09/28/23 06:54 Medications Acetaminophen (Acetaminophen 325 Mg Tablet) 650 mg PO Q6H PRN PRN Reason: Pain scale 5-7 (Moderate) Last Admin: 09/27/23 23:29 Dose: 650 mg Enoxaparin Sodium (Enoxaparin 40 Mg/0.4 Ml) 40 mg SQ DAILY [facility] Last Admin: 09/28/23 07:58 Dose: 40 mg Glucagon (Glucagon 1 Mg/Vial) 1 mg IM 1X PRN; Protocol PRN Reason: HYPOGLYCEMIA Levofloxacin/Dextrose (Levaquin 750 Mg/150 Ml Ivpb (Premix)) 750 mg in 150 mls @ 100 mls/hr IV Q24H [facility] Last Admin: 09/27/23 16:30 Dose: 150 mls Vancomycin HCl 1 gm/ Sodium (Chloride) 250 mls @ 250 mls/hr IVPB Q18H [facility] Last Admin: 09/28/23 04:31 Dose: 250 mls Sodium Bicarbonate 75 meq/ (Sodium Chloride) 1,075 mls @ 125 mls/hr IV .Q8H36M [facility] Last Admin: 09/28/23 02:31 Dose: 1,075 mls Insulin Glargine (Insulin Glargine 100 Unit/Ml) 25 unit SQ DAILY [facility] Last Admin: 09/28/23 08:29 Dose: Not Given Insulin Human Regular (Insulin Regular (Human) 100 Unit/Ml) 0 unit SQ ACHS [facility]; Protocol Last Admin: 09/28/23 09:28 Dose: 5 unit Lorazepam (Lorazepam 2 Mg/Ml Vial) 1 mg IV Q6H PRN PRN Reason: ANXIETY Ondansetron HCl (Ondansetron 4 Mg/2 Ml Vial) 4 mg IV Q6H PRN PRN Reason: NAUSEA / VOMITING Potassium Chloride (Potassium Cl Sa 10 Meq Tab) 40 meq PO Q4H [facility] Stop: 09/28/23 13:01 Last Admin: 09/28/23 09:28 Dose: 40 meq Microbiology Results 09/26/23 14:10 Blood - Blood Aerobic Blood Culture - Preliminary No growth in 24 hours. 09/26/23 14:10 Blood - Blood Anaerobic Blood Culture - Preliminary 09/26/23 14:10 Blood - Blood Gram Stain - Final 09/26/23 12:23 Blood - Blood Aerobic Blood Culture - Preliminary No growth in 24 hours. 09/26/23 12:23 Blood - Blood Anaerobic Blood Culture - Preliminary No growth in 24 hours. Assessment/ Plan: Nephrology Progress Note No Dyspnea No Chest Pain Malaise and fatigue No Acute Events Overnight Vital Signs, Medications, Blood Work, and Imaging reviewed in the chart NAD. NCAT. MMM. Neck Supple. Normal Respiratory Effort/ CTA. RRR. Abd ND. No C/C. LE Edema none. No Rash. AAO. Normal Speech. Assessment & Plan Stage II CHANCE may be due to hypovolemia complicated by ATN CKD I with Proteinuria -No NSAIDs -Continue IVF -Give IVF bolus -Consider a renal ultrasound if the renal fx does not improve Hyponatremia -Continue IVF -Encourage nutrition Hypokalemia -Replete as ordered NAG Acidosis AG resolved -Continue IVF with bicarb Hypophosphatemia, resolved -Encourage nutrition Hypoalbuminemia -Encourage nutrition Anemia in chronic illness -Monitor H&H Cocaine Abuse -Recommend cessation Repeat BMP ordered for today Hospitalist and ER notes reviewed.
[2023-09-28] MEDS: Ringers Lactate 500 ML IV ONE (11:36)
[2023-09-28] MEDS: POTASSIUM 25 MEQ EFFERV TAB FT ONE (11:39)
[2023-09-29 05:16] LABS: Absolute Lymphocytes (CBC) 1.1 K/uL (0.7-4.9); Absolute Monocytes 0.7 K/uL (0.1-1.3); Absolute Neutrophil 5.9 K/uL (1.8-8.0); Basophils % 0.6 % (0-1.3); Eosinophils % 0.2 % (0-4.4); Hematocrit 29.4 % (39.6-49.0); Hemoglobin 10.4 g/dL (13.6-17.9); Lymphocytes % 13.8 % (15.3-44.8); MCH 31.9 pg (27.0-35.0); MCHC 35.5 g/dL (32.0-36.0); MCV 89.7 fL (80-100); MPV 9.4 fL (7.6-11.3); Monocytes % 9.2 % (3.3-12.3); Neutrophils % 76.2 % (41.7-73.7); Nucleated Red Blood Cells % 0.1 % (0-0); Platelets 136 thou/uL (152-406); RBC Red Blood Cell Count 3.28 M/uL (4.33-5.43); Red Cell Distribution Width 13.9 % (12.1-15.2)
[2023-09-29 05:33] LABS: Albumin 1.7 g/dL (3.4-5.0); Anion Gap 9.3 mEq/L (5.0-15.0); Magnesium 1.7 mg/dL (1.6-2.4); Phosphorus 3.2 mg/dL (2.5-4.9); Potassium 3.3 mEq/L (3.5-5.1); Uric Acid 4.8 mg/dL (3.5-7.2)
[2023-09-29 05:48] LABS: UR PROTEIN 17.4 mg/dL (<11.9)
[2023-09-29 05:50] LABS: UR CREAT < 18.0 mg/dL (20-370)
[2023-09-29 05:57] LABS: Specific Gravity 1.005 (1.005-1.030); Sqamous Epithelial None Seen /HPF (None Seen); Urine Bacteria <20 /HPF (<20); Urine Bilirubin NEGATIVE (Negative); Urine Blood Trace (Negative); Urine Clarity Clear (Clear); Urine Color Colorless (Yellow); Urine Culture Reflex Order NOT NEEDED; Urine Glucose NEGATIVE (Negative); Urine Ketones NEGATIVE (Negative); Urine Micro Reflex YN NO BILL MICROSCOPIC; Urine Mucus Slight /HPF (None Seen); Urine Nitrite NEGATIVE (Negative); Urine Protein NEGATIVE (Negative); Urine RBC <5 /HPF (None Seen); Urine Urobilinogen Normal (Normal); Urine WBC <5 /HPF (<5); Urine pH 5.5 (5.0-7.0)
[2023-09-29] MEDS: MAGNESIUM SULFATE 1 gm IVPB 1 GM/100 ML BAG IV ONE (06:04)
[2023-09-29 06:19] LABS: UR CREAT < 18.0 mg/dL (20-370); UR MICROALBUMIN 7.1 mg/dL (< 1.9)
--- NOTE | 2023-09-29 08:02 | P.PN ---
Subjective Date of Service: 09/29/23 Chief Complaint: DKA Transition to the floor on blood sugars ACHS, transition to high sliding scale insulin blood glucose improved overnight 128 this a.m. long-acting insulin 25 units daily Acute kidney injury, nephrology consult for worsening kidney UDS positive for cocaine, alert and oriented this morning answering questions appropriately - Physical Exam General: Alert, In no apparent distress, Oriented x3 HEENT: Atraumatic, Normocephalic Neck: Supple, 2+ carotid pulse no bruit Respiratory: Clear to auscultation bilaterally, Normal air movement Cardiovascular: No edema, Normal pulses Capillary refill: <2 Seconds Gastrointestinal: Normal bowel sounds, nontender Musculoskeletal: No clubbing, No swelling Integumentary: No rashes, No breakdown Neurological: Normal speech, Normal strength at 5/5 x4 extr <Yamilka Duval - Last Filed: 09/29/23 16:01> Date of Service: 09/29/23 <Garry Marroquin - Last Filed: 09/29/23 16:38> Review of Systems Per HPI <Yamilka Duval - Last Filed: 09/29/23 16:01> Physical Examination - Vital Signs Temperature: 97.1 F Blood Pressure: 137/97 Pulse: 74 Respirations: 16 Pulse Ox (%): 100 - Studies Microbiology Data (last 24 hrs): 09/26/23 14:10 Blood - Blood Anaerobic Blood Culture - Final Streptococcus Agalactiae Grp B 09/26/23 14:10 Blood - Blood Gram Stain - Final <Yamilka Duval - Last Filed: 09/29/23 16:01> - Studies Microbiology Data (last 24 hrs): 09/26/23 14:10 Blood - Blood Anaerobic Blood Culture - Final Streptococcus Agalactiae Grp B 09/26/23 14:10 Blood - Blood Gram Stain - Final <Garry Marroquin - Last Filed: 09/29/23 16:38> Assessment And Plan - Plan Assessment plan Admit to ICU on DKA improved IV fluids, insulin drip, every hour blood sugars, Insulin drip per DKA protocol Every 4 hours BMP and mag in ICU on insulin Gtt Blood glucose greater than 500 09/25 long acting insulin added 20UQD, BG >300 still elevated will increase 25UQD 09/26 transition to the floor, DC insulin drip sliding scale Accu-Chek high Accu- Cheks ACHS Start long-acting insulin 0900 today 09/28 Blood glucose improved on 25 units of Lantus, high sliding scale insulin blood glucose 124 Bacteremia Infectious disease consult 09/25 Positive blood cultures x1 G+v(1 of 3) 09/27 Repeat blood cultures in a.m IV vancomycin, Levaquin. HX cocaine use (ukn IVD) Lactic acidosis improving IV fluids, Cultures, Trend lactic Lactic 2.9, repeat repeat lactic Urine, blood culture 09/26 Nephrology switched IV fluids to bicarb for base deficit greater than 250 Dehydration, Abdominal pain, Nausea vomiting diarrhea As needed analgesics, antiemetics, IV fluids Trend lactic, Acute kidney injury unknown baseline BUN 25/1.6-> BUN 33 1.47-BUN 37 1.65->Bun 43/2.77-45/2.81 09/26 Nephrology consult worsening 09/28 IV fluids today, repeat BMP this evening Hypokalemia improved Trend electrolytes replace as needed every 4 hours BMP 4.0, 3.3, replace Hypocalcemia 6.9 calcium replaced Opioid abuse disorder UDS positive for cocaine educate on substance abuse disorder Microcytic anemia HH 12.1/34.4-> 10.3/28.6 trend HH Full code DVT Lovenox Diet dm diet Disposition Home Discharge Plan: Home - Code Status/Comfort Care Code Status: Full Code Critical Care: No Time Spent Managing PTS Care (In Minutes): 35 <Yamilka Duval - Last Filed: 09/29/23 16:01> - Plan Pt seen and examined. I agree with the note by the INSTRUCTIONAL SYSTEMS DESIGN CONSULTANT. Will control blood sugar with insulin regimen. Will give IVF for CHANCE. Will dc soon. <Garry Marroquin - Last Filed: 09/29/23 16:38>
[2023-09-29] MEDS: POTASSIUM CL SA 10 MEQ TAB PO ONE ×2 (08:57→12:30)
[2023-09-29] MEDS: ENOXAPARIN 30 MG/0.3 ML SQ SCH (08:57)
[2023-09-29 13:45] VITALS: BMI 17.3
--- NOTE | 2023-09-29 14:51 | P.DS ---
Admission Date: 09/26/23 Discharge Date: 09/29/23 Disposition: ROUTINE DISCHARGE Discharge Condition: GOOD Reason for Admission: DKA Brief History of Present Illness: 33-year-old male with a past medical history of goj-yfdyack-gavyzuqsl diabetes, presents to the emergency room with nausea vomiting. He reports associated unable to tolerate p.o. intake, abdominal cramping, diarrhea. He reports symptoms started 3 days ago, is getting progressively worse. He reports feeling dehydrated. He denies chest pain, shortness of breath, vomiting, syncope, plan to admit for DKA, dehydration nausea vomiting, to ICU. VS 181 / 94; Pulse 108; Resp 20; Temp 97.7; Pulse Ox 100% on R/A; Weight 52.16 kg; Height 5 ft. 10 in. ; Pain 10/10; treated with Dilaudid, 1 mg, Zofran, in the emergency room for pain and vomiting. Chest x-ray IMPRESSION: Hyperaerated lungs Small nodular opacity right base a represent a nipple shadow or pulmonary nodule. Follow-up chest film including obliques with a right nipple marker in 3 months recommended for re- evaluation. CT of the abdomen pelvis pending report Physical Exam General: Alert, In no apparent distress, Oriented x3 HEENT: Atraumatic, Normocephalic Neck: Supple, 2+ carotid pulse no bruit Respiratory: Clear to auscultation bilaterally, Normal air movement Cardiovascular: No edema, Normal pulses Capillary refill: <2 Seconds Gastrointestinal: Normal bowel sounds, Other (Nausea vomiting diarrhea) Musculoskeletal: No clubbing, No swelling Integumentary: No rashes, No breakdown Neurological: Normal speech, Normal strength at 5/5 x4 extr Hospital Course: 33 year-old male patient presented with hyperglycemia, Was noted to have uncontrolled hyperglycemia, lactic acidosis, acute kidney injury. Condition improved with IV insulin. IV antibiotics. Patient tolerating diet, stable for discharge to home with follow-up appointment with primary care physician. PROBLEM: Uncontrolled diabetes with hyperglycemia Lactic acidosis Acute kidney injury Discharge home with Levaquin daily, 70/30 insulin, Follow-up with primary care in 1 week instructed to take blue blood glucose log Educated on diabetic diet- will need repeat BMP to monitor kidney function from primary care office in 1 Continue home medicines as previously prescribed GOAL: Clear understanding of disease process INSTRUCTIONS: Physician Discharge Instructions: -Follow-up with PCP in 1 to 2 weeks -Please call Dr. Gracia at [phone] if any questions regarding hospital stay -Please call nursing station at [phone] if any nursing or medication questions -Return to the emergency room if symptoms worsen Diet: ADA, low sodium Activity: Fall precautions Vital Signs/Physical Exam: Temp Pulse Resp BP Pulse Ox 97.8 F 73 17 140/90 99 09/29/23 12:00 09/29/23 12:00 09/29/23 12:00 09/29/23 12:00 09/29/23 12:00 Laboratory Data at Discharge: WBC 7.70 thou/uL (4.3-10.9) 09/29/23 04:45 Hgb 10.4 g/dL (13.6-17.9) L 09/29/23 04:45 Hct 29.4 % (39.6-49.0) L 09/29/23 04:45 Plt Count 136 thou/uL (152-406) L 09/29/23 04:45 Sodium 140 mEq/L (136-145) D 09/29/23 04:45 Potassium 3.3 mEq/L (3.5-5.1) L D 09/29/23 04:45 BUN 45 mg/dL (7-18) H 09/29/23 04:45 Creatinine 2.81 mg/dL (0.70-1.30) H 09/29/23 04:45 Glucose 132 mg/dL (74-106) H 09/29/23 04:45 Uric Acid 4.8 mg/dL (3.5-7.2) 09/29/23 04:45 Phosphorus 3.2 mg/dL (2.5-4.9) 09/29/23 04:45 Magnesium 1.7 mg/dL (1.6-2.4) 09/29/23 04:45 Total Bilirubin 0.4 mg/dL (0.2-1.0) 09/26/23 13:10 AST 14 U/L (15-37) L 09/26/23 13:10 ALT 27 U/L (16-61) 09/26/23 13:10 Alkaline Phosphatase 216 U/L (45-117) H 09/26/23 13:10 Home Medications: Insulin 70/30 NPH/Reg Human [Novolin 70/30*] 25 unit SQ BID 30 Days #15 ml 09/29/23 Lisinopril [Zestril] 20 mg PO DAILY 09/29/23 levoFLOXacin [Levaquin] 750 mg PO DAILY 7 Days #7 tab 09/29/23 New Medications: levoFLOXacin [Levaquin] 750 mg PO DAILY 7 Days #7 tab Insulin 70/30 NPH/Reg Human [Novolin 70/30*] 25 unit SQ BID 30 Days #15 ml Physician Discharge Instructions: Continue ad saud activity. Take insulin 70/30 25u BID and levaquin 750mg po daily with other home meds. Follow up with PCP within 2 weeks Diet: AHA Activity: Ad saud Followup: NONE,NONE [Primary Care Provider] -
[2023-09-29] MEDS: NA CHLORIDE 0.9% 1,000 ML IV SCH (15:18)
[2023-09-29] MEDS: Ringers Lactate 1,000 ML IV SCH (17:17)
[2023-09-29 18:14] LABS: Anion Gap 11.5 mEq/L (5.0-15.0); Potassium 4.5 mEq/L (3.5-5.1)
[2023-09-29] MEDS ORDERED: VANCOMYCIN 1 GM in NA CHLORIDE 0.9% 250 ML IVPB SCH (23:00)
[2023-09-30 04:56] LABS: Anion Gap 9.8 mEq/L (5.0-15.0); Magnesium 2.1 mg/dL (1.6-2.4); Potassium 3.8 mEq/L (3.5-5.1)
[2023-09-30] MEDS: POTASSIUM CL SA 10 MEQ TAB PO ONE (08:41)
[2023-09-30] MEDS: lisinopriL 20 MG TAB PO SCH (08:42)
[2023-09-30] MEDS: CEFTRIAXONE 2,000 MG in NA CHLORIDE 0.9% 100 ML IV SCH (08:42)
--- NOTE | 2023-09-30 08:44 | P.CNS ---
Date of Consult: 09/30/23 Reason for Consult: bacteremia Chief Complaint: DKA History of Present Illness: Patient is a 33-year-old male with a past medical history of zke-dplcapw-rkvimvojs diabetes who presented to the ED with complaints of nausea vomiting, decreased PO intake, abdominal cramping and diarrhea. He was admitted for further management of DKA. Blood cultures growing group B strep. infectious disease was consulted. Allergies No Known Allergies Allergy (Unverified 09/26/23 13:57) Home medications list reviewed: Yes Home Medications: Insulin 70/30 NPH/Reg Human [Novolin 70/30*] 25 unit SQ BID 30 Days #15 ml 09/29/23 Lisinopril [Zestril] 20 mg PO DAILY 09/29/23 levoFLOXacin [Levaquin] 750 mg PO DAILY 7 Days #7 tab 09/29/23 - Past Medical/Surgical History Diabetic: Yes -: As per above Physical Examination Temp Pulse Resp BP Pulse Ox 97.5 F 71 18 115/92 H 99 09/30/23 04:00 09/30/23 04:00 09/30/23 04:00 09/30/23 08:42 09/30/23 04:00 Laboratory Data - Reviewed Microbiology Data - Reviewed Imagings Data: - Reviewed Conclusions/Impression: Problem List Diabetic ketoacidosis (DKA) Gram-Positive Bacteremia Diabetes Mellitus Acute Kidney Injury Cocaine use Gram-Positive Bacteremia - Unclear source - blood cultures 09/25: streptococcus agalactiae in 2/4 bottles - Repeat blood cultures 09/27: no growth to date - CT abdomen pelvis: "moderate to marked gastric distention" - urinalysis not suggestive of UTI - Previously on Vancomycin (09/26-09/29-) --> deescalated to Rocephin IV 09/29 Leukocytosis resolved. Afebrile. Acute Kidney Injury - Worsening renal function, vancomycin deescalated to rocephin 09/29. - Renal ultrasound 09/29: " Echogenic kidneys are present bilaterally compatible with underlying medical renal disease. Both kidneys are also somewhat prominent in size." - nephrology following Recommendations - group B strep bacteremia: Recommend continuing antibiotic therapy x 10 days following negative culture given rapid clearance of bacteremia and clinical improvement. - Continue with Rocephin 2g IV q24h (09/27-10/06) - negative cultures obtained 09/27. Follow up with second set bcx obtained 09/29 - HgbA1c >14; Recommend diabetic education/counseling. Strict blood glucose control. - continue supportive care. - Renally dose medications. See nephrology note for further recommendations. Case discussed with Kate Mays
--- NOTE | 2023-09-30 09:20 | P.PN ---
Subjective Date of Service: 09/30/23 Chief Complaint: DKA Subjective: No new changes (complains of leg cramping otherwise no complaints, blood sugar trending down, mid 300s) <Samantha Tee - Last Filed: 09/30/23 09:23> Date of Service: 10/01/23 <Garry Marroquin - Last Filed: 10/01/23 22:23> Review of Systems 10-point ROS is otherwise unremarkable General: As per HPI Musculoskeletal: As per HPI <Samantha Tee - Last Filed: 09/30/23 09:23> Physical Examination - Vital Signs Temperature: 97.5 F Blood Pressure: 115/92 Pulse: 71 Respirations: 18 Pulse Ox (%): 99 - Physical Exam General: Alert, In no apparent distress, Oriented x3 HEENT: Atraumatic, Normocephalic Neck: Supple Respiratory: Normal air movement Cardiovascular: No edema, Normal pulses, Regular rate/rhythm Capillary refill: <2 Seconds Gastrointestinal: Hypoactive Musculoskeletal: No clubbing, Other (thin, poor tone) Integumentary: Other (acanthosis) Neurological: Normal speech, Abnormal tone Lymphatics: No axilla or inguinal lymphadenopathy External genitalia: Deferred Rectal: Deferred - Studies Microbiology Data (last 24 hrs): 09/26/23 14:10 Blood - Blood Aerobic Blood Culture - Final Streptococcus Agalactiae Grp B 09/26/23 14:10 Blood - Blood Anaerobic Blood Culture - Final Streptococcus Agalactiae Grp B 09/26/23 14:10 Blood - Blood Gram Stain - Final <Samantha Tee - Last Filed: 09/30/23 09:23> - Studies Microbiology Data (last 24 hrs): 09/26/23 12:23 Blood - Blood Aerobic Blood Culture - Final No growth in 5 days. 09/26/23 12:23 Blood - Blood Anaerobic Blood Culture - Final No growth in 5 days. <Garry Marroquin - Last Filed: 10/01/23 22:23> Assessment And Plan - Plan A/P: DKA: Will continue DKA protocol. glucose is trending down. AG closed Lactic acidosis: Lactate is 2.9. continued IVF and trended lactate. Leukocytosis: WBC is 15.7. Due to DKA. Will monitor. CHANCE: Nephrology following, appreciate recommendations, renal us ordered as CHANCE worsening even with electrolytes normalizing. FSBS in mid 300's, C7 with probable pseudohyponatremia, Chloride borderline high Code: full Blood cultures positive overnight with S. agalactiae. Pharmacist recommends Rocephin 2gm IVPB daily added to decreased frequency Vanco as acute kidney injury is worsening even as anion gap closed. <Samantha Tee - Last Filed: 09/30/23 09:23> - Plan Pt seen and examined. I agree with the note by the MANUFACTURING LABORER. Continue insulin regimen. Will continue rocephin 2gm iv daily for Strep Agalactiae. <Garry Marroquin - Last Filed: 10/01/23 22:23>
--- NOTE | 2023-09-30 11:24 | RAD REPORT ---
EXAM DESCRIPTION: US - Renal Ultrasound-Complete - 09/30/2023 10:52 am CLINICAL HISTORY: CHANCE without improvement COMPARISON: No comparisons FINDINGS: Both kidneys are significantly echogenic compatible with underlying medical renal disease. Both kidneys are also prominent in size. The right kidney measures 12.0 x 7.7 x 7.1 cm.. No hydronephrosis, focal mass or perinephric fluid. The left kidney measures 13.2 x 7.7 x 6.6 cm. No hydronephrosis, focal mass or perinephric fluid. The urinary bladder is incompletely distended without gross abnormality seen. IMPRESSION: Echogenic kidneys are present bilaterally compatible with underlying medical renal disea se. Both kidneys are also somewhat prominent in size.
--- NOTE | 2023-09-30 14:32 | EKG ---
Test Date: 2023-09-26 Test Time: 11:54:57 Digital Press Operator: MB MEASUREMENT RESULTS: Intervals: Rate: 100 DC: 172 QRSD: 92 QT: 360 QTc: 464 [place]: P: 84 DC: 172 QRS: 81 T: -39 INTERPRETIVE STATEMENTS: Normal sinus rhythm Right atrial enlargement Nonspecific ST abnormality Abnormal ECG No previous ECG available for comparison Electronically Signed On 09-30-23 14:18:09 CDT by Rosendo Hernandez
[2023-09-30] MEDS ORDERED: Levofloxacin 750mg IV 750 MG/150 ML BAG IV SCH (15:00)
[2023-09-30] MEDS: GLUCERNA SHAKE 237 ML CAN PO SCH (20:59)
--- NOTE | 2023-09-30 22:39 | P.PN ---
Date of Service: 09/30/23 Vital Signs Temp Pulse Resp BP Pulse Ox 98.2 F 72 16 138/102 H 99 09/30/23 20:00 09/30/23 20:00 09/30/23 20:00 09/30/23 20:00 09/30/23 20:00 Medications Acetaminophen (Acetaminophen 325 Mg Tablet) 650 mg PO Q6H PRN PRN Reason: Pain scale 5-7 (Moderate) Last Admin: 09/30/23 22:00 Dose: 650 mg Enoxaparin Sodium (Enoxaparin 30 Mg/0.3 Ml) 30 mg SQ DAILY [facility] Last Admin: 09/30/23 08:40 Dose: 30 mg Enteral Nutritional Formula (Glucerna Shake 237 Ml Can) 237 ml PO BID [facility] Last Admin: 09/30/23 20:59 Dose: 237 ml Glucagon (Glucagon 1 Mg/Vial) 1 mg IM 1X PRN; Protocol PRN Reason: HYPOGLYCEMIA Lactated Ringer's (Lactated Ringers) 1,000 mls @ 100 mls/hr IV .Q10H [facility] Last Admin: 09/30/23 22:03 Dose: 1,000 mls Ceftriaxone Sodium 2,000 mg/ (Sodium Chloride) 100 mls @ 200 mls/hr IV DAILY [facility]; Protocol Last Admin: 09/30/23 08:42 Dose: 100 mls Insulin Glargine (Insulin Glargine 100 Unit/Ml) 25 unit SQ DAILY [facility] Last Admin: 09/30/23 08:41 Dose: 25 unit Insulin Human Regular (Insulin Regular (Human) 100 Unit/Ml) 0 unit SQ ACHS [facility]; Protocol Last Admin: 09/30/23 20:57 Dose: 4 unit Lisinopril (Lisinopril 20 Mg Tab) 20 mg PO DAILY [facility] Last Admin: 09/30/23 08:42 Dose: Not Given Lorazepam (Lorazepam 2 Mg/Ml Vial) 1 mg IV Q6H PRN PRN Reason: ANXIETY Ondansetron HCl (Ondansetron 4 Mg/2 Ml Vial) 4 mg IV Q6H PRN PRN Reason: NAUSEA / VOMITING Microbiology Results 09/26/23 14:10 Blood - Blood Aerobic Blood Culture - Final Streptococcus Agalactiae Grp B 09/26/23 14:10 Blood - Blood Anaerobic Blood Culture - Final Streptococcus Agalactiae Grp B 09/26/23 14:10 Blood - Blood Gram Stain - Final 09/26/23 12:23 Blood - Blood Aerobic Blood Culture - Preliminary No growth in 24 hours. 09/26/23 12:23 Blood - Blood Anaerobic Blood Culture - Preliminary No growth in 24 hours. Assessment/ Plan: Nephrology Progress Note No Dyspnea No Chest Pain Good urine output. No Acute Events Overnight Vital Signs, Medications, Blood Work, and Imaging reviewed in the chart NAD. NCAT. MMM. Neck Supple. Normal Respiratory Effort/ CTA. RRR. Abd ND. No C/C. LE Edema none. No Rash. AAO. Normal Speech. Assessment & Plan Stage II CHANCE may be due to hypovolemia complicated by ATN CKD I with Proteinuria -No NSAIDs -Continue IVF -Renal US reviewed Hyponatremia -Continue IVF -Maintain nutrition Hypokalemia -Replete prn NAG Acidosis AG resolved -Continue IVF Hypophosphatemia, resolved -Encourage nutrition DM II with CKD -Continue Lantus -RISS Hypoalbuminemia -Encourage nutrition Anemia in chronic illness -Monitor H&H Cocaine Abuse -Recommend cessation Hospitalist notes reviewed.
[2023-10-01] MEDS: LORazepam 2 MG/ML VIAL IV PRN (01:48)
[2023-10-01 04:46] LABS: Absolute Eosinophils 0.1 K/uL (0-0.5); Absolute Lymphocytes (CBC) 1.5 K/uL (0.7-4.9); Absolute Monocytes 0.8 K/uL (0.1-1.3); Absolute Neutrophil 4.8 K/uL (1.8-8.0); Basophils % 0.7 % (0-1.3); Eosinophils % 1.8 % (0-4.4); Hematocrit 33.8 % (39.6-49.0); Hemoglobin 11.6 g/dL (13.6-17.9); Lymphocytes % 21.1 % (15.3-44.8); MCH 31.3 pg (27.0-35.0); MCHC 34.3 g/dL (32.0-36.0); MCV 91.2 fL (80-100); MPV 9.5 fL (7.6-11.3); Monocytes % 10.9 % (3.3-12.3); Neutrophils % 65.5 % (41.7-73.7); Platelets 211 thou/uL (152-406); Red Cell Distribution Width 13.6 % (12.1-15.2)
[2023-10-01 05:17] LABS: Anion Gap 11.1 mEq/L (5.0-15.0); Potassium 4.1 mEq/L (3.5-5.1)
--- NOTE | 2023-10-01 07:02 | ECHO ---
HEIGHT: 5 ft 8 in WEIGHT: 114 lb 3.2 oz DATE OF STUDY: 09/30/[address]: Garry Marroquin MD 2-DIMENSIONAL: YES M.MODE: YES DOPPLER: YES COLOR FLOW: YES TDS: PORTABLE: YES DEFINITY: BUBBLE STUDY: DIAGNOSIS: RULE OUT ENDOCARDITIS CARDIAC HISTORY: CATHERIZATION: NO SURGERY: NO PROSTHETIC VALVE: NO PACEMAKER: NO MEASUREMENTS (cm) DIASTOLIC (NORMALS) SYSTOLIC (NORMALS) IVSd 0.7 (0.6-1.2) LA Diam 1.8 (1.9-4.0) LVEF 51% LVIDd 3.7 (3.5-5.7) LVIDs 2.8 (2.0-3.5) %FS 26% LVPWd 0.8 (0.6-1.2) Ao Diam 2.7 (2.0-3.7) 2 DIMENSIONAL ASSESSMENT: RIGHT ATRIUM: NORMAL LEFT ATRIUM: NORMAL RIGHT VENTRICLE: NORMAL LEFT VENTRICLE: NORMAL TRICUSPID VALVE: MILD TRICUSPID REGURGITATION MITRAL VALVE: MILD MITRAL REGURGITATION PULMONIC VALVE: NORMAL AORTIC VALVE: NORMAL PERICARDIAL EFFUSION: NONE AORTIC ROOT: NORMAL LEFT VENTRICULAR WALL MOTION: NORMAL DOPPLER/COLOR FLOW: SEE BELOW COMMENTS: 1. NORMAL LEFT VENTRICULAR EJECTION FRACTION 50-55% 2. MILD MITRAL REGURGITATION 3. MILD TRICUSPID REGURGITATION 4. NO CLEAR EVIDENCE OF VEGETATION, IF CLINICALLY IS INDICATED TRANSESOPHAGEAL CAN BE HELPFUL. TECHNOLOGIST: DEONNA WARNER
[2023-10-01] MEDS: SODIUM BICARB 325 MG TAB PO SCH (08:26)
[2023-10-01] MEDS: DRISDOL (VITAMIN D=ERGOCALCIFEROL) 50000 UNIT CAP PO SCH (08:26)
--- NOTE | 2023-10-01 08:58 | P.PN ---
Subjective Date of Service: 10/01/23 Chief Complaint: DKA c/o bilateral back pain, no n/v, tolerating CL diet <Samantha Tee - Last Filed: 10/01/23 08:54> Date of Service: 10/01/23 <NaheedScar rushtracey Griffith - Last Filed: 10/01/23 22:28> Review of Systems 10-point ROS is otherwise unremarkable General: As per HPI Gastrointestinal: As per HPI Genitourinary: As per HPI <Samantha Tee - Last Filed: 10/01/23 08:54> Physical Examination - Vital Signs Temperature: 97.7 F Blood Pressure: 127/89 Pulse: 75 Respirations: 15 Pulse Ox (%): 99 - Physical Exam General: Alert, In no apparent distress, Oriented x3, Cachectic HEENT: Atraumatic, Normocephalic Neck: 2+ carotid pulse no bruit Respiratory: Normal air movement Cardiovascular: No edema, Regular rate/rhythm Capillary refill: <2 Seconds Gastrointestinal: Soft and benign Musculoskeletal: No swelling, No contractures Integumentary: No breakdown Neurological: Normal speech, Abnormal tone Lymphatics: No axilla or inguinal lymphadenopathy External genitalia: Deferred Rectal: Deferred - Studies Microbiology Data (last 24 hrs): 09/26/23 14:10 Blood - Blood Aerobic Blood Culture - Final Streptococcus Agalactiae Grp B 09/26/23 14:10 Blood - Blood Anaerobic Blood Culture - Final Streptococcus Agalactiae Grp B 09/26/23 14:10 Blood - Blood Gram Stain - Final <Samantha Tee - Last Filed: 10/01/23 08:54> - Studies Microbiology Data (last 24 hrs): 09/26/23 12:23 Blood - Blood Aerobic Blood Culture - Final No growth in 5 days. 09/26/23 12:23 Blood - Blood Anaerobic Blood Culture - Final No growth in 5 days. <Garry Marroquin - Last Filed: 10/01/23 22:28> Assessment And Plan - Plan A/P: DKA: Will continue DKA protocol. glucose is trending down. AG closed Lactic acidosis: Lactate is 2.9. continued IVF and trended lactate. Leukocytosis: WBC is 15.7. Due to DKA. Will monitor. CHANCE: Nephrology following, appreciate recommendations, renal us ordered as CHANCE worsening even with electrolytes normalizing. FSBS in mid 300's, C7 with probable pseudohyponatremia, Chloride borderline high, creatinine trending up over 4 today (10/01/23) Code: full Blood cultures positive overnight with S. agalactiae. Pharmacist recommends Rocephin 2gm IVPB daily (09/30/23) added to decreased frequency Vanco as acute kidney injury is worsening even as anion gap closed. Vancomycin dc'd 09/30/23 <Samantha Tee - Last Filed: 10/01/23 08:54> - Plan Pt seen and examined. I agree with the note by the SENIOR TECHNICAL SUPPORT ENGINEER. manager games is working on setting up a means for pt to come to the ER daily to complete rocephin 2gm IM . UDS was positive for cocaine. <Garry Marroquin - Last Filed: 10/01/23 22:28>
[2023-10-01 13:30] LABS: Specific Gravity 1.005 (1.005-1.030); Sqamous Epithelial None Seen /HPF (None Seen); Urine Bacteria None Seen /HPF (<20); Urine Bilirubin NEGATIVE (Negative); Urine Blood Negative (Negative); Urine Clarity Clear (Clear); Urine Color Colorless (Yellow); Urine Culture Reflex Order NOT NEEDED; Urine Glucose 4+ (Over) (Negative); Urine Ketones NEGATIVE (Negative); Urine Micro Reflex YN NO BILL MICROSCOPIC; Urine Mucus Slight /HPF (None Seen); Urine Nitrite NEGATIVE (Negative); Urine Protein NEGATIVE (Negative); Urine RBC <5 /HPF (None Seen); Urine Urobilinogen Normal (Normal); Urine WBC <5 /HPF (<5); Urine pH 5.5 (5.0-7.0)
[2023-10-01] MEDS ORDERED: D10W 125 ML IV PRN (14:20)
[2023-10-01] MEDS: INSULIN GLARGINE 100 UNIT/ML SQ SCH (20:14)
[2023-10-01] MEDS ORDERED: INSULIN GLARGINE 100 UNIT/ML SQ SCH (21:00)
--- NOTE | 2023-10-01 21:42 | P.PN ---
Date of Service: 10/01/23 Vital Signs Temp Pulse Resp BP Pulse Ox 97.8 F 65 16 153/100 H 100 10/01/23 20:00 10/01/23 20:00 10/01/23 20:00 10/01/23 20:00 10/01/23 20:00 Medications Acetaminophen (Acetaminophen 325 Mg Tablet) 650 mg PO Q6H PRN PRN Reason: Pain scale 5-7 (Moderate) Last Admin: 09/30/23 22:00 Dose: 650 mg Enteral Nutritional Formula (Glucerna Shake 237 Ml Can) 237 ml PO BID [facility] Last Admin: 10/01/23 20:16 Dose: 237 ml Ergocalciferol (Drisdol (Vitamin D=Ergocalciferol) 75158 Unit Cap) 50,000 unit PO Q7D@0900 [facility] Last Admin: 10/01/23 08:26 Dose: 50,000 unit Glucagon (Glucagon 1 Mg/Vial) 1 mg IM 1X PRN; Protocol PRN Reason: HYPOGLYCEMIA Heparin Sodium (Porcine) (Heparin 5000 Unit/Ml 1 Ml Vial) 5,000 unit SQ Q12HR [facility] Ceftriaxone Sodium 2,000 mg/ (Sodium Chloride) 100 mls @ 200 mls/hr IV DAILY [facility]; Protocol Last Admin: 10/01/23 08:25 Dose: 100 mls Dextrose (Dextrose 10% Water Iv Soln.) 125 mls @ 0 mls/hr IV PRN PRN; Protocol PRN Reason: HYPOGLYCEMIA Insulin Glargine (Insulin Glargine 100 Unit/Ml) 34 unit SQ BID [facility] Insulin Human Regular (Insulin Regular (Human) 100 Unit/Ml) 0 unit SQ ACHS [facility]; Protocol Last Admin: 10/01/23 20:15 Dose: 6 unit Lorazepam (Lorazepam 2 Mg/Ml Vial) 1 mg IV Q6H PRN PRN Reason: ANXIETY Last Admin: 10/01/23 01:48 Dose: 1 mg Ondansetron HCl (Ondansetron 4 Mg/2 Ml Vial) 4 mg IV Q6H PRN PRN Reason: NAUSEA / VOMITING Sodium Bicarbonate (Sodium Bicarb 325 Mg Tab) 650 mg PO TIDWM [facility] Last Admin: 10/01/23 17:27 Dose: 650 mg Microbiology Results 09/26/23 12:23 Blood - Blood Aerobic Blood Culture - Final No growth in 5 days. 09/26/23 12:23 Blood - Blood Anaerobic Blood Culture - Final No growth in 5 days. 09/26/23 14:10 Blood - Blood Aerobic Blood Culture - Final Streptococcus Agalactiae Grp B 09/26/23 14:10 Blood - Blood Anaerobic Blood Culture - Final Streptococcus Agalactiae Grp B 09/26/23 14:10 Blood - Blood Gram Stain - Final Assessment/ Plan: Nephrology Progress Note No Dyspnea No Chest Pain Good urine output. +BM No Acute Events Overnight Vital Signs, Medications, Blood Work, and Imaging reviewed in the chart NAD. NCAT. MMM. Neck Supple. Normal Respiratory Effort/ CTA. RRR. Abd ND. No C/C. LE Edema none. No Rash. AAO. Normal Speech. Assessment & Plan Stage II CHANCE may be due to hypovolemia complicated by ATN CKD I with Proteinuria -No NSAIDs -Continue IVF -Renal US reviewed Hyponatremia -Continue IVF -Maintain nutrition Hypokalemia -Replete prn NAG Acidosis AG resolved -Start oral bicarb Hypophosphatemia, resolved -Encourage nutrition DM II with CKD -Increase Lantus -RISS Hypoalbuminemia -Encourage nutrition Anemia in chronic illness -Monitor H&H Cocaine Abuse -Recommend cessation Hospitalist notes reviewed.
[2023-10-02 04:48] LABS: Anion Gap 9.4 mEq/L (5.0-15.0); Potassium 3.4 mEq/L (3.5-5.1); Uric Acid 4.6 mg/dL (3.5-7.2)
[2023-10-02 04:49] LABS: Albumin 1.9 g/dL (3.4-5.0); Albumin/Globulin Ratio 0.6 (1.1-1.8); Bilirubin Total 0.2 mg/dL (0.2-1.0); Phosphorus 6.4 mg/dL (2.5-4.9); Protein, Total 4.9 g/dL (6.4-8.2)
[2023-10-02] MEDS: POTASSIUM CL SA 10 MEQ TAB PO ONE (05:54)
[2023-10-02] MEDS: HEPARIN 5000 UNIT/ML 1 ML VIAL SQ SCH (09:31)
[2023-10-02] MEDS: INSULIN GLARGINE 100 UNIT/ML SQ SCH (09:31)
[2023-10-02 10:02] LABS: Absolute Eosinophils 0.2 K/uL (0-0.5); Absolute Lymphocytes (CBC) 1.3 K/uL (0.7-4.9); Basophils % 0.4 % (0-1.3); Eosinophils % 3.4 % (0-4.4); Hematocrit 28.2 % (39.6-49.0); Hemoglobin 9.7 g/dL (13.6-17.9); Lymphocytes % 19.6 % (15.3-44.8); MCH 31.6 pg (27.0-35.0); MCHC 34.5 g/dL (32.0-36.0); MCV 91.5 fL (80-100); MPV 9.1 fL (7.6-11.3); Monocytes % 14.8 % (3.3-12.3); Neutrophils % 61.8 % (41.7-73.7); Nucleated Red Blood Cells % 0.3 % (0-0); Platelets 213 thou/uL (152-406); RBC Red Blood Cell Count 3.08 M/uL (4.33-5.43); Red Cell Distribution Width 13.3 % (12.1-15.2)
[2023-10-02] MEDS: POTASSIUM 25 MEQ EFFERV TAB PO ONE ×2 (15:29→16:34)
--- NOTE | 2023-10-02 15:55 | P.PN ---
Subjective Date of Service: 10/02/23 Chief Complaint: DKA no n/v, tolerating renal diet, continued worsening of renal function. Insulin glargine increased to 34u BID. FSBS still mostly greater than 300mg/dL, mild headache this am. Tylenol given Review of Systems 10-point ROS is otherwise unremarkable Gastrointestinal: As per HPI Genitourinary: As per HPI Physical Examination - Vital Signs Temperature: 99.2 F Blood Pressure: 142/93 Pulse: 67 Respirations: 18 Pulse Ox (%): 99 - Physical Exam General: Alert, In no apparent distress, Oriented x3, Cachectic HEENT: Atraumatic, Normocephalic Neck: 2+ carotid pulse no bruit Respiratory: Normal air movement Cardiovascular: Normal pulses, Regular rate/rhythm Capillary refill: <2 Seconds Gastrointestinal: Hypoactive Musculoskeletal: No clubbing, No swelling Integumentary: No rashes, Other (+acanthosis) Neurological: Normal speech, Abnormal tone - Studies Microbiology Data (last 24 hrs): 09/26/23 12:23 Blood - Blood Aerobic Blood Culture - Final No growth in 5 days. 09/26/23 12:23 Blood - Blood Anaerobic Blood Culture - Final No growth in 5 days. Assessment And Plan - Plan A/P: DKA: Will continue adjusting insulin Lactic acidosis: resolved and then CO2 is dipping again, LR up at 100ml/hr secon d to hyperchloride state Blood cultures positive with S. agalactiae. Pharmacist recommends Rocephin 2gm IVPB daily (09/30/23) Vancomycin dc'd 09/30/23 lovenox DVT prophylaxis changed to Heparin sc Leukocytosis: WBC is improved CHANCE: Nephrology following, appreciate recommendations, renal us showed chronic renal disease, CHANCE worsening even with electrolytes normalizing. FSBS in mid 300's to 400s, insulin glargine increased to 34u BID, C7 with 3.4 potassium this am, 40meq po given, Chloride borderline high, creatinine trending up over 4 today (10/02/23). Nephrology ordered hepatitis panel, avoid nephrotoxins Code: full
[2023-10-02] MEDS: Ringers Lactate 1,000 ML IV SCH (16:35)
--- NOTE | 2023-10-02 21:14 | P.PN ---
Date of Service: 10/02/23 Vital Signs Temp Pulse Resp BP Pulse Ox 96.9 F 73 18 156/96 H 100 10/02/23 20:00 10/02/23 20:00 10/02/23 20:00 10/02/23 20:00 10/02/23 20:00 Medications Acetaminophen (Acetaminophen 325 Mg Tablet) 650 mg PO Q6H PRN PRN Reason: Pain scale 5-7 (Moderate) Last Admin: 10/02/23 06:22 Dose: 650 mg Enteral Nutritional Formula (Glucerna Shake 237 Ml Can) 237 ml PO BID [facility] Last Admin: 10/02/23 20:45 Dose: 237 ml Ergocalciferol (Drisdol (Vitamin D=Ergocalciferol) 58376 Unit Cap) 50,000 unit PO Q7D@0900 [facility] Last Admin: 10/01/23 08:26 Dose: 50,000 unit Glucagon (Glucagon 1 Mg/Vial) 1 mg IM 1X PRN; Protocol PRN Reason: HYPOGLYCEMIA Heparin Sodium (Porcine) (Heparin 5000 Unit/Ml 1 Ml Vial) 5,000 unit SQ Q12HR [facility] Last Admin: 10/02/23 20:45 Dose: 5,000 unit Ceftriaxone Sodium 2,000 mg/ (Sodium Chloride) 100 mls @ 200 mls/hr IV DAILY [facility]; Protocol Last Admin: 10/02/23 09:33 Dose: 100 mls Dextrose (Dextrose 10% Water Iv Soln.) 125 mls @ 0 mls/hr IV PRN PRN; Protocol PRN Reason: HYPOGLYCEMIA Lactated Ringer's (Lactated Ringers) 1,000 mls @ 100 mls/hr IV .Q10H [facility] Last Admin: 10/02/23 16:35 Dose: 1,000 mls Insulin Glargine (Insulin Glargine 100 Unit/Ml) 34 unit SQ BID [facility] Last Admin: 10/02/23 20:46 Dose: 34 unit Insulin Human Regular (Insulin Regular (Human) 100 Unit/Ml) 0 unit SQ ACHS [facility]; Protocol Last Admin: 10/02/23 20:45 Dose: 349 unit Ondansetron HCl (Ondansetron 4 Mg/2 Ml Vial) 4 mg IV Q6H PRN PRN Reason: NAUSEA / VOMITING Sodium Bicarbonate (Sodium Bicarb 325 Mg Tab) 650 mg PO TIDWM [facility] Last Admin: 10/02/23 16:34 Dose: 650 mg Microbiology Results 09/26/23 12:23 Blood - Blood Aerobic Blood Culture - Final No growth in 5 days. 09/26/23 12:23 Blood - Blood Anaerobic Blood Culture - Final No growth in 5 days. 09/26/23 14:10 Blood - Blood Aerobic Blood Culture - Final Streptococcus Agalactiae Grp B 09/26/23 14:10 Blood - Blood Anaerobic Blood Culture - Final Streptococcus Agalactiae Grp B 09/26/23 14:10 Blood - Blood Gram Stain - Final Assessment/ Plan: Nephrology Progress Note No Dyspnea No Chest Pain Good urine output. +BM No Acute Events Overnight Prior to admission, the patient reports that he used cocaine on the weekend. His condition worsened on Saturday with associated N/V, and he started Advil twice daily. He did not go to work on Saturday and then was admitted to the hospital on . Vital Signs, Medications, Blood Work, and Imaging reviewed in the chart NAD. NCAT. MMM. Neck Supple. Normal Respiratory Effort/ CTA. RRR. Abd ND. No C/C. LE Edema none. No Rash. AAO. Normal Speech. Assessment & Plan Stage II CHANCE may be due to hypovolemia complicated by ATN CKD I with Proteinuria -No NSAIDs -Continue IVF -Renal US reviewed Hyponatremia -Continue IVF -Maintain nutrition Hypokalemia -Replete as ordered NAG Acidosis AG resolved -Continue oral bicarb Hypophosphatemia, resolved -Encourage nutrition DM II with CKD -Continue Lantus -RISS Hypoalbuminemia -Encourage nutrition Anemia in chronic illness -Monitor H&H Cocaine Abuse -Recommend cessation Hospitalist notes reviewed. Case discussed with Dr. Peña
[2023-10-03] MEDS: MELATONIN 5 MG TABLET PO PRN (00:51)
[2023-10-03 05:25] LABS: Anion Gap 9.3 mEq/L (5.0-15.0); Potassium 3.3 mEq/L (3.5-5.1)
[2023-10-03 05:35] LABS: Hepatitis B Core Ab, Total Nonreactive (Nonreactive); Hepatitis B Surface Ab - Quant 15.96 mIU/mL (<8.0); Hepatitis B surface AG Interp. Nonreactive (Nonreactive); Hepatitis C Virus Ab Nonreactive (Nonreactive)
[2023-10-03 05:36] LABS: HBsAG Nonreactive Report Report
--- NOTE | 2023-10-03 10:42 | P.PN ---
Subjective Date of Service: 10/03/23 Chief Complaint: DKA Subjective: Other (continued c/o back pain and insomnia) IVF changed to LR yesterday () as hyperchloremic but with rocephin being given and worsening renal function, will change to D5W with 20meq/Kcl at 80ml/hr. FSBS have finally come down with glargine at 34u BID Review of Systems 10-point ROS is otherwise unremarkable General: As per HPI Genitourinary: As per HPI Physical Examination - Vital Signs Temperature: 97.7 F Blood Pressure: 123/75 Pulse: 66 Respirations: 14 Pulse Ox (%): 99 - Physical Exam General: Alert, In no apparent distress, Oriented x3 HEENT: Atraumatic, Normocephalic Neck: 2+ carotid pulse no bruit Respiratory: Normal air movement Cardiovascular: Normal pulses, Regular rate/rhythm Capillary refill: <2 Seconds Gastrointestinal: Non-distended Musculoskeletal: No clubbing Integumentary: No breakdown Neurological: Normal speech Lymphatics: No axilla or inguinal lymphadenopathy External genitalia: Deferred Rectal: Deferred Assessment And Plan - Plan A/P: DKA: Will continue adjusting insulin - now getting Insulin glargine 34u BID Lactic acidosis: resolved and then CO2 is dipping again, LR up at 100ml/hr second to hyperchloride state (), worsening CO2 and creatinine up to 4.6 as pt is getting Rocephin even though through central line and potassium is low this am and blood sugar is more in control. IVF changed to D5W with 20meq KCl at 80ml/hr, continue oral sodium bicarb Sepsis: Blood cultures positive with S. agalactiae. Pharmacist recommends Rocephin 2gm IVPB daily (09/30/23) Vancomycin dc'd 09/30/23 Leukocytosis: WBC is normalized CHANCE: Nephrology following, appreciate recommendations, renal us showed chronic renal disease, CHANCE worsening even with electrolytes normalizing. FSBS in mid 300's to 400s, insulin glargine increased to 34u BID, C7 with 3.3 potassium this am (), Chloride remains borderline high, creatinine trending up again to 4.6 today with BUN 65 (10/03/23). IVF changed to D5W with 20meq KCL at 80ml/hr. Nephrology ordered hepatitis panel, avoid nephrotoxins lovenox DVT prophylaxis changed to Heparin sc (10/02/23) Code: full
[2023-10-03] MEDS: POTASSIUM 25 MEQ EFFERV TAB PO ONE ×2 (10:43→12:07)
[2023-10-03] MEDS: D5W 1,000 ML with POTASSIUM CL 20 MEQ IV SCH (11:00)
[2023-10-03] MEDS: Ringers Lactate 1,000 ML IV SCH (12:00)
[2023-10-03] MEDS: SODIUM BICARB 325 MG TAB PO SCH (15:02)
[2023-10-03] MEDS: INSULIN GLARGINE 100 UNIT/ML SQ SCH (20:52)
--- NOTE | 2023-10-03 21:31 | P.PN ---
Date of Service: 10/03/23 Vital Signs Temp Pulse Resp BP Pulse Ox 97.8 F 63 18 142/95 H 100 10/03/23 20:00 10/03/23 20:00 10/03/23 20:00 10/03/23 20:00 10/03/23 20:00 Medications Acetaminophen (Acetaminophen 325 Mg Tablet) 650 mg PO Q6H PRN PRN Reason: Pain scale 5-7 (Moderate) Last Admin: 10/03/23 11:40 Dose: 650 mg Enteral Nutritional Formula (Glucerna Shake 237 Ml Can) 237 ml PO BID [facility] Last Admin: 10/03/23 20:52 Dose: 237 ml Ergocalciferol (Drisdol (Vitamin D=Ergocalciferol) 39507 Unit Cap) 50,000 unit PO Q7D@0900 [facility] Last Admin: 10/01/23 08:26 Dose: 50,000 unit Glucagon (Glucagon 1 Mg/Vial) 1 mg IM 1X PRN; Protocol PRN Reason: HYPOGLYCEMIA Heparin Sodium (Porcine) (Heparin 5000 Unit/Ml 1 Ml Vial) 5,000 unit SQ Q12HR [facility] Last Admin: 10/03/23 20:52 Dose: 5,000 unit Ceftriaxone Sodium 2,000 mg/ (Sodium Chloride) 100 mls @ 200 mls/hr IV DAILY [facility]; Protocol Last Admin: 10/03/23 08:06 Dose: 100 mls Dextrose (Dextrose 10% Water Iv Soln.) 125 mls @ 0 mls/hr IV PRN PRN; Protocol PRN Reason: HYPOGLYCEMIA Lactated Ringer's (Lactated Ringers) 1,000 mls @ 100 mls/hr IV .Q10H [facility] Last Admin: 10/03/23 16:13 Dose: 1,000 mls Insulin Glargine (Insulin Glargine 100 Unit/Ml) 32 unit SQ BID [facility] Last Admin: 10/03/23 20:52 Dose: 32 unit Insulin Human Regular (Insulin Regular (Human) 100 Unit/Ml) 0 unit SQ ACHS [facility]; Protocol Last Admin: 10/03/23 20:52 Dose: 14 unit Melatonin (Melatonin 5 Mg Tablet) 10 mg PO BEDTIME PRN PRN PRN Reason: INSOMNIA Last Admin: 10/03/23 00:51 Dose: 10 mg Ondansetron HCl (Ondansetron 4 Mg/2 Ml Vial) 4 mg IV Q6H PRN PRN Reason: NAUSEA / VOMITING Sodium Bicarbonate (Sodium Bicarb 325 Mg Tab) 650 mg PO QID [facility] Last Admin: 10/03/23 20:55 Dose: Not Given Microbiology Results 09/26/23 12:23 Blood - Blood Aerobic Blood Culture - Final No growth in 5 days. 09/26/23 12:23 Blood - Blood Anaerobic Blood Culture - Final No growth in 5 days. 09/26/23 14:10 Blood - Blood Aerobic Blood Culture - Final Streptococcus Agalactiae Grp B 09/26/23 14:10 Blood - Blood Anaerobic Blood Culture - Final Streptococcus Agalactiae Grp B 09/26/23 14:10 Blood - Blood Gram Stain - Final Assessment/ Plan: Nephrology Progress Note No Dyspnea No Chest Pain Good urine output No Acute Events Overnight Prior to admission, the patient reports that he used cocaine on the weekend. His condition worsened on Saturday with associated N/V, and he started Advil twice daily. He did not go to work on Saturday and then was admitted to the hospital on . Vital Signs, Medications, Blood Work, and Imaging reviewed in the chart NAD. NCAT. MMM. Neck Supple. Normal Respiratory Effort/ CTA. RRR. Abd ND. No C/C. LE Edema none. No Rash. AAO. Normal Speech. Assessment & Plan Stage II CHANCE may be due to hypovolemia complicated by ATN CKD I with Proteinuria -No NSAIDs -Continue IVF -Renal US reviewed Hyponatremia -Continue IVF -Maintain nutrition Hypokalemia -Replete as ordered NAG Acidosis AG resolved -Increase oral bicarb Hypophosphatemia, resolved -Encourage nutrition DM II with CKD -Continue Lantus -RISS Hypoalbuminemia -Encourage nutrition Anemia in chronic illness -Monitor H&H Cocaine Abuse -Recommend cessation Hospitalist notes reviewed. Case discussed with Dr. Peña & Deacon Tee SINGEING TORCH OPERATOR
[2023-10-04] MEDS: SODIUM BICARB 325 MG TAB PO SCH (10:33)
--- NOTE | 2023-10-04 11:19 | P.PN ---
(S) Pt seen sitting up at the edge of the bed, doing better, no acute dyspnea, no N/V/D, mild LE edema. Has been ambulatory (O) Vitals reviewed in the EMR General: NAD HEENT: Atraumatic, Normocephalic Neck: Lt IJ CVC Respiratory: Normal air movement, no rales Cardiovascular: Regular rate/rhythm Gastrointestinal: Soft and benign, Non-distended, No tenderness, No guarding Musculoskeletal: 1+ distal b/l edema Integumentary: No erythema Neurological: Awake, alert, non encephalopathic Conclusions/Impression: A/P) 1. Stage III ARF in the setting of volume depletion, DKA, sepsis, possible recent use of SRI/ARB all of which likely led to ATN even though automated UA did not report granular casts. Pt has been non oliguric, no polyuria or salt wasting noted. 2. Cr level now peaking/plateauing, will monitor for another day and if stable or ideally lower, will discharge with anticipated slow renal recovery 3. D/c IVF, pt has developed some peripheral edema, and maintaining PO intake 4. Hyperchloremic metab acidosis -cont sodium bicarb but lower dose 5. DM with hyperglycemia -Insulin management per primary team. Valdemar Kenny MD, LOR[facility]
--- NOTE | 2023-10-04 16:02 | P.PN ---
Subjective Date of Service: 10/04/23 Chief Complaint: DKA Subjective: Tolerating diet, Ambulating IVF stopped per Nephrology today. <Samantha Tee - Last Filed: 10/04/23 15:58> Date of Service: 10/04/23 <radha shabazz - Last Filed: 10/04/23 18:16> Review of Systems 10-point ROS is otherwise unremarkable General: As per HPI Respiratory: As per HPI Cardiovascular: Unremarkable Genitourinary: As per HPI <Samantha Tee - Last Filed: 10/04/23 15:58> Physical Examination - Vital Signs Temperature: 97.8 F Blood Pressure: 143/85 Pulse: 66 Respirations: 17 Pulse Ox (%): 100 - Physical Exam General: Alert, In no apparent distress, Oriented x3 HEENT: Atraumatic, Normocephalic Neck: 2+ carotid pulse no bruit Respiratory: Clear to auscultation bilaterally, Normal air movement Cardiovascular: Other (mild pedal edema) Gastrointestinal: Soft and benign Musculoskeletal: No clubbing, No swelling Neurological: Normal speech, Normal tone Lymphatics: No axilla or inguinal lymphadenopathy External genitalia: Deferred Rectal: Deferred <Samantha Tee - Last Filed: 10/04/23 15:58> Assessment And Plan - Plan A/P: DKA: Will continue adjusting insulin - now getting Insulin glargine 34u BID Lactic acidosis: resolved Sepsis: Blood cultures positive with S. agalactiae. Pharmacist recommends Rocephin 2gm IVPB daily (09/30/23) Leukocytosis: WBC is normalized CHANCE: Nephrology following, appreciate recommendations, Nephrology ordered hepatitis panel, avoid nephrotoxins Stop IVF per Nephrology. Creatinine seems to have plateaued at 4.61 lovenox DVT prophylaxis changed to Heparin sc (10/02/23) Code: full <Samantha Tee - Last Filed: 10/04/23 15:58> - Plan Patient seen and examined. Plan of care discussed with Ms. Tee. Serum creatinine probably plateaued. Patient is currently asymptomatic. Nephrology is following and managing. Monitor renal function for improvement. Patient with brittle blood sugar. Titrate Lantus insulin. <radha shabazz - Last Filed: 10/04/23 18:16>
--- NOTE | 2023-10-05 07:53 | P.PN ---
Subjective Date of Service: 10/05/23 Chief Complaint: DKA, ATN, Subjective: Tolerating diet, Improving IVF stopped per Nephrology today. Still rec'ing Rocephin IV. Ambulatory, has feet elevated secondary to edema <Glenda Teebello Sims - Last Filed: 10/05/23 09:59> Date of Service: 10/05/23 <Garry Marroquin C - Last Filed: 10/05/23 16:14> Review of Systems 10-point ROS is otherwise unremarkable Gastrointestinal: Other (diarrhea resolving, more normal stools) Musculoskeletal: Other (back pain is gone per report) <Glenda Teebello Sims - Last Filed: 10/05/23 09:59> Physical Examination - Vital Signs Temperature: 98 F Blood Pressure: 133/80 Pulse: 72 Respirations: 18 Pulse Ox (%): 99 - Physical Exam General: Alert, In no apparent distress, Oriented x3 HEENT: Atraumatic, Normocephalic Neck: JVD not distended Respiratory: Clear to auscultation bilaterally Cardiovascular: Regular rate/rhythm, Edema (mild pedal) Gastrointestinal: Normal bowel sounds, Soft and benign Musculoskeletal: No clubbing Integumentary: No rashes Neurological: Normal speech, Normal tone Lymphatics: No axilla or inguinal lymphadenopathy External genitalia: Deferred Rectal: Deferred <Glenda Teey Levi - Last Filed: 10/05/23 09:59> Assessment And Plan - Plan A/P: DKA: Will continue adjusting insulin - now getting Insulin glargine 32u bid Lactic acidosis: resolved Sepsis: Blood cultures positive with S. agalactiae. Pharmacist recommends Rocephin 2gm IVPB daily (09/30/23) Leukocytosis: WBC is normalized CHANCE: Nephrology following, appreciate recommendations, Nephrology ordered hepatitis panel, avoid nephrotoxins Stop IVF per Nephrology. Creatinine seems to have plateaued at 4.61, awaiting C7 today - trending down 4.47 lovenox DVT prophylaxis changed to Heparin sc (10/02/23) Code: full <Glenda Teey Levi - Last Filed: 10/05/23 09:59> - Plan Pt seen and examined. I agree with the note by the STRAIGHT PIN MAKING MACHINE OPERATOR. Pt is feeling better. He is getting iv rocephin 2gm iv daily. Blood cx from 09/26/23 grew strep agalactiae. repeat blood cx on 09/28/23 shows no growth. Cr is 4.61. I t has plateaued. Will monitor renal function and avoid nephrotoxins. <Garry Marroquin - Last Filed: 10/05/23 16:14>
[2023-10-05 09:42] LABS: Absolute Basophils 0.1 K/uL (0-0.5); Absolute Eosinophils 0.2 K/uL (0-0.5); Absolute Lymphocytes (CBC) 1.1 K/uL (0.7-4.9); Absolute Monocytes 1.1 K/uL (0.1-1.3); Absolute Neutrophil 4.4 K/uL (1.8-8.0); Basophils % 0.7 % (0-1.3); Eosinophils % 3.5 % (0-4.4); Hematocrit 25.4 % (39.6-49.0); Hemoglobin 8.9 g/dL (13.6-17.9); Lymphocytes % 16.3 % (15.3-44.8); MCH 32.3 pg (27.0-35.0); MCHC 35.1 g/dL (32.0-36.0); MCV 92.1 fL (80-100); MPV 8.2 fL (7.6-11.3); Monocytes % 15.7 % (3.3-12.3); Neutrophils % 63.8 % (41.7-73.7); Nucleated Red Blood Cells % 0.1 % (0-0); Platelets 298 thou/uL (152-406); RBC Red Blood Cell Count 2.76 M/uL (4.33-5.43); Red Cell Distribution Width 13.9 % (12.1-15.2)
[2023-10-05 09:57] LABS: Anion Gap 12.8 mEq/L (5.0-15.0); Potassium 3.8 mEq/L (3.5-5.1)
[2023-10-05] MEDS: POTASSIUM CL SA 10 MEQ TAB PO ONE (10:40)
--- NOTE | 2023-10-05 12:05 | PN ---
Date of Progress Note: 10/05/2023 Subjective: The patient was seen and examined at bedside. Denies any complaints. Objective: Vital Signs: Reviewed and are stable. General: He appears in no acute distress. Lungs: Clear. Abdomen: Soft. Extremities: Showed no evidence of edema. Laboratory Data: Showing creatinine trend improving to 4.4 from 4.6. Electrolytes are showing mild metabolic acidosis with a bicarb of 19. Other electrolytes are stable. CBC showing stable hemoglobi n, hematocrit, and platelet count overall. Current Medications: Reviewed in detail. Impression: Acute renal failure secondary to acute tubular necrosis. Currently with improving renal function, with improving trend in his creatinine. The patient is nonoliguric. No need for dialysis . DICTATION ENDS HERE. VV/MODL Voice ID: [id number] Report ID: [id number]
--- NOTE | 2023-10-05 12:38 | PN ---
Date of Progress Note: 10/05/2023 Subjective: The patient was seen and examined at bedside. He is doing okay. No issues noted. Objective: Vital Signs: Reviewed and are stable. Laboratory Data: Reviewed. Impression: 1.Acute renal failure with ATN with improving renal function at this time. Continue to monitor and okay to be discharged if cleared by the primary team. 2.Diabetic ketoacidosis, improving. 3.Metabolic acidosis, improving. 4.Type 2 diabetes with diabetic ketoacidosis. Insulin management per primary team. Plan: The patient's renal function is improving. Continue p.o. intake. Monitor labs and okay to be discharged. VV/MODL Voice ID: [id number] Report ID: [id number]
[2023-10-06 01:57] VITALS: O2SAT 95
[2023-10-06 05:59] LABS: Anion Gap 11.8 mEq/L (5.0-15.0); Phosphorus 6.4 mg/dL (2.5-4.9); Potassium 3.8 mEq/L (3.5-5.1)
[2023-10-06 12:48] VITALS: BP 153/86; TEMP 98.7
--- NOTE | 2023-10-06 13:37 | P.PN ---
Subjective Date of Service: 10/06/23 Chief Complaint: DKA, ATN, Subjective: No new changes IVF stopped per Nephrology today. Still rec'ing Rocephin IV. Ambulatory, pedal edema improved <Samantha Teelen - Last Filed: 10/06/23 13:33> Date of Service: 10/07/23 <Garry Marroquin - Last Filed: 10/07/23 22:24> Review of Systems 10-point ROS is otherwise unremarkable General: As per HPI <Glenda Teey Levi - Last Filed: 10/06/23 13:33> Physical Examination - Vital Signs Temperature: 98.7 F Blood Pressure: 153/86 Pulse: 83 Respirations: 16 Pulse Ox (%): 99 - Physical Exam General: Alert, In no apparent distress, Oriented x3 HEENT: Atraumatic, Normocephalic Neck: Supple, 2+ carotid pulse no bruit Respiratory: Normal air movement Cardiovascular: Normal pulses, Regular rate/rhythm Capillary refill: <2 Seconds Gastrointestinal: Normal bowel sounds, Soft and benign Musculoskeletal: No clubbing, No swelling Integumentary: No rashes Neurological: Normal speech, Normal tone Lymphatics: No axilla or inguinal lymphadenopathy External genitalia: Deferred Rectal: Deferred <Glenda Teey Levi - Last Filed: 10/06/23 13:33> Assessment And Plan - Plan A/P: DKA: Will continue adjusting insulin - now getting Insulin glargine 32u bid Lactic acidosis: resolved Sepsis: Blood cultures positive with S. agalactiae. Pharmacist recommends Rocephin 2gm IVPB daily (09/30/23 thru 10/07/23) Leukocytosis: WBC is normalized CHANCE: Nephrology following, appreciate recommendations, Nephrology ordered hepatitis panel, avoid nephrotoxins Stop IVF per Nephrology. Creatinine seems to have plateaued at 4.61, awaiting C7 today - trending down 4.47, continued down trending lovenox DVT prophylaxis changed to Heparin sc (10/02/23) Code: full Discharge Plan: Home Plan to discharge in: 24 Hours - Code Status/Comfort Care Code Status Assessed: Yes (full) <RandalSamantha Sims - Last Filed: 10/06/23 13:33> - Plan Pt seen and examined. I agree with the note by the LASER CUTTER. Will control blood sugar with insulin. Continue rocephin 2gm iv daily for strep agalactiae till 10/07/23. <Garry Marroquin - Last Filed: 10/07/23 22:24>
--- NOTE | 2023-10-06 13:39 | P.DS ---
Admission Date: 09/26/23 Discharge Date: 10/06/23 Reason for Admission: DKA, ATN, Consultations: Infectious disease - Dr. Birch Nephrology - Dr. Davenport Procedures: Central line to Internal Jugular Brief History of Present Illness: Pt is a 33yo male with past medical history of DM who presents with nausea and vomiting. Pt is poor history turn sewer. He was disoriented. This history is from chart review. Pt told the ER physician that he started having nausea, vomiting, poor oral intake, diarrhea and abd pain 3 days ago. It progressively worsened and pt came to the ER for evaluation. On admission, lab studies show wbc 15.7, glucose 671 and hgb 15.6. CXR shows hyperaerated lungs Small nodular opacity right base a represent a nipple shadow or pulmonary nodule. At bedside, pt is in mild distress Hospital Course: Mr. Joshi's Hospital course was exacerbated by acute tubular necrosis from dehydration, cocaine use, and then in an attempt to feel better taking Advil.. He was managed well by Dr. Davenport and his creatinine peaked at 4.61. There was concern for endocarditis secondary to a blood culture that came back positive for Strep Agalactiae. He was seen by Dr. Birch who suggested 10 days of R ocephin after the first negative blood culture. His creatinine is trending down and Mr. Joshi is feeling better, holding down food, and ambulatory around the unit. His last dose of Rocephin will be given tomorrow am and he will be discharged. He will need guidance for glucose control, he needs to avoid nephrotoxic substances, and needs a primary care provider. Discharge medications will include vitamin D, Glucerna shakes, insulin 70/30 30 units subcutaneously twice daily, and sodium bicarb tablets <Samantha Tee Levi - Last Filed: 10/06/23 15:32> Admission Date: 09/26/23 Discharge Date: 10/06/23 Hospital Course: Pt seen and examined. I agree with the note by the SWISS TYPE SCREW MACHINE OPERATOR. Pt is feeling better. Will come back to the ER tomorrow for one more day of IM rocephin. Pt was advised to take insulin 70/30 30 units BID. Follow up with Nephrology within 1 week to monitor renal function. Ok to discharge pt. <Garry Marroquin - Last Filed: 10/06/23 17:48> Disposition: ROUTINE DISCHARGE Discharge Condition: GOOD Vital Signs/Physical Exam: Temp Pulse Resp BP Pulse Ox 98.7 F 83 16 153/86 H 99 10/06/23 13:36 10/06/23 13:36 10/06/23 13:36 10/06/23 13:36 10/06/23 13:36 Laboratory Data at Discharge: WBC 7.00 thou/uL (4.3-10.9) 10/05/23 09:27 Hgb 8.9 g/dL (13.6-17.9) L 10/05/23 09:27 Hct 25.4 % (39.6-49.0) L 10/05/23 09:27 Plt Count 298 thou/uL (152-406) 10/05/23 09:27 Sodium 141 mEq/L (136-145) 10/06/23 05:10 Potassium 3.8 mEq/L (3.5-5.1) 10/06/23 05:10 BUN 68 mg/dL (7-18) H 10/06/23 05:10 Creatinine 4.23 mg/dL (0.70-1.30) H 10/06/23 05:10 Glucose 131 mg/dL (74-106) H 10/06/23 05:10 Uric Acid 4.6 mg/dL (3.5-7.2) 10/02/23 04:08 Phosphorus 6.4 mg/dL (2.5-4.9) H 10/06/23 05:10 Magnesium 2.1 mg/dL (1.6-2.4) 09/30/23 04:08 Total Bilirubin 0.2 mg/dL (0.2-1.0) 10/02/23 04:08 AST 11 U/L (15-37) L 10/02/23 04:08 ALT 12 U/L (16-61) L 10/02/23 04:08 Alkaline Phosphatase 90 U/L (45-117) 10/02/23 04:08 <Tee,Samantha Levi - Last Filed: 10/06/23 15:32> Vital Signs/Physical Exam: Temp Pulse Resp BP Pulse Ox 98.7 F 83 16 153/86 H 99 10/06/23 13:36 10/06/23 13:36 10/06/23 13:36 10/06/23 13:36 10/06/23 13:36 Laboratory Data at Discharge: WBC 7.00 thou/uL (4.3-10.9) 10/05/23 09:27 Hgb 8.9 g/dL (13.6-17.9) L 10/05/23 09:27 Hct 25.4 % (39.6-49.0) L 10/05/23 09:27 Plt Count 298 thou/uL (152-406) 10/05/23 09:27 Sodium 141 mEq/L (136-145) 10/06/23 05:10 Potassium 3.8 mEq/L (3.5-5.1) 10/06/23 05:10 BUN 68 mg/dL (7-18) H 10/06/23 05:10 Creatinine 4.23 mg/dL (0.70-1.30) H 10/06/23 05:10 Glucose 131 mg/dL (74-106) H 10/06/23 05:10 Uric Acid 4.6 mg/dL (3.5-7.2) 10/02/23 04:08 Phosphorus 6.4 mg/dL (2.5-4.9) H 10/06/23 05:10 Magnesium 2.1 mg/dL (1.6-2.4) 09/30/23 04:08 Total Bilirubin 0.2 mg/dL (0.2-1.0) 10/02/23 04:08 AST 11 U/L (15-37) L 10/02/23 04:08 ALT 12 U/L (16-61) L 10/02/23 04:08 Alkaline Phosphatase 90 U/L (45-117) 10/02/23 04:08 <Garry Marroquin - Last Filed: 10/06/23 17:48> Diet: ADA Activity: Ad saud <Tee,Samantha Levi - Last Filed: 10/06/23 15:32> <Garry Marroquin - Last Filed: 10/06/23 17:48> Home Medications: Lisinopril [Zestril] 20 mg PO DAILY 09/29/23 Glucerna Shake [Glucerna*] 237 ml PO BID #10 can 10/06/23 Insulin 70/30 NPH/Reg Human [Novolin 70/30*] 30 unit SQ BID #10 ml 10/06/23 Na Bicarb Tab [Sodium Bicarb 325 MG Tab*] 650 mg PO BID #20 tab 10/06/23 Vitamin D [Drisdol*] 50,000 unit PO Q7D@0900 #4 cap 10/06/23 New Medications: Vitamin D [Drisdol*] 50,000 unit PO Q7D@0900 #4 cap Glucerna Shake [Glucerna*] 237 ml PO BID #10 can Insulin 70/30 NPH/Reg Human [Novolin 70/30*] 30 unit SQ BID #10 ml Na Bicarb Tab [Sodium Bicarb 325 MG Tab*] 650 mg PO BID #20 tab Physician Discharge Instructions: Okay to DC IV and DC home Follow-up with primary care provider in 1 to 2 weeks Follow-up with nephrology in 1 to 2-week Please call the inpatient unit for any questions or concerns regarding hospital stay Return to the ER for worsening symptoms continue ad saud activity. Take insulin 70/30 25u BID. Follow up with PCP within 2 weeks Followup: NONE,NONE [Primary Care Provider] - Noel Davenport DO [ACTIVE - CAN ADMIT] -
[2023-10-06] MEDS: CEFTRIAXONE 1000 MG/VIAL IM ONE (16:21)
== END 2023-10-06 17:51 | disposition home or self-care (01) | DRG 637 ==
LOC: ER 11:14 → ERHOLD 14:18 → 2ND 09-27 12:45
PROVIDERS: ADMIT Hospitalist; ATTEND Hospitalist
PROC: 4A033R1 Measurement of Arterial Saturation, Peripheral, Percutaneous Approach (ICD-10-PCS; principal; 2023-09-26)
PROC: 0T9B70Z Drainage of Bladder with Drainage Device, Via Natural or Artificial Opening (ICD-10-PCS; 2023-09-27)
PROC: 02HV33Z Insertion of Infusion Device into Superior Vena Cava, Percutaneous Approach (ICD-10-PCS; 2023-09-27)
DX: E11.10 Type 2 diabetes mellitus with ketoacidosis without coma (principal); A40.1 Sepsis due to streptococcus, group B; N17.0 Acute kidney failure with tubular necrosis; E87.1 Hypo-osmolality and hyponatremia; R64 Cachexia; Z68.1 Body mass index [BMI] 19.9 or less, adult; I38 Endocarditis, valve unspecified; I12.9 Hypertensive chronic kidney disease with stage 1 through stage 4 chronic kidney disease, or unspecified chronic kidney disease; N18.1 Chronic kidney disease, stage 1; E11.22 Type 2 diabetes mellitus with diabetic chronic kidney disease; D63.1 Anemia in chronic kidney disease; D50.9 Iron deficiency anemia, unspecified; E88.09 Other disorders of plasma-protein metabolism, not elsewhere classified; E86.0 Dehydration; E87.6 Hypokalemia; E83.51 Hypocalcemia; F41.9 Anxiety disorder, unspecified; F11.10 Opioid abuse, uncomplicated; F14.10 Cocaine abuse, uncomplicated; E86.9 Volume depletion, unspecified; E83.42 Hypomagnesemia; E83.39 Other disorders of phosphorus metabolism; D72.829 Elevated white blood cell count, unspecified; B95.1 Streptococcus, group B, as the cause of diseases classified elsewhere; Z79.4 Long term (current) use of insulin; Z79.84 Long term (current) use of oral hypoglycemic drugs; Z79.899 Other long term (current) drug therapy
CPT/HCPCS: 36415; 36600; 71045; 74176; 76770; 80048; 80053; 80069; 80202; 80307; 81001; 82010; 82043; 82306; 82435; 82550; 82570; 82805; 82947; 83036; 83605; 83735; 84100; 84132; 84156; 84300; 84550; 85018; 85025; 86704; 86706; 86803; 87040; 87077; 87186; 87205; 87340; 93005; 93306; 99285; J0696; J1170; J1644; J1650; J1815; J2001; J2405; J3475; J3480; J7030; J7040; J7050; J7120; J7799